=== PATIENT | female | born 1940 | race Caucasian/White ===

== ENCOUNTER 2017-06-16 07:05 | Inpatient (IN) | payer MEDICARE ==
--- NOTE | 2017-06-02 17:11 | NUR ---
PATIENT HERE TODAY FOR PREADMISSION APPOINTMENT ACCOMPANIED BY HER MAN. PATIENT IS SCHEDULED FOR A RIGHT TOTAL KNEE REPLACMENT ON 06/16/17. SHE LIVES IN [place] AND WOULD LIKE PHYSICAL THERAPY TO BE SET UP AT [facility]. SHE REPORTS HAVING A RAMP TO GET INTO THE HOME AND NO STEPS INSIDE THE HOME. SHE HAS A TUB SHOWER COMBO THAT HER HAS WORKED ON AND IT IS A "WALK IN" SINCE HE CUT A HOLE IN THE SIDE OF THE TUB. SHE HAS A SHOWER CHAIR AND IS LOOKING AT GETTING A HAND HELD SHOWER HEAD. SHE HAS A 4 WHEELED WALKER THAT SHE WOULD LIKE TO USE IF SHE IS ABLE TO. THIS INFORMATION WILL BE SENT TO DR NOVA OFFICE AND [place] PLANNING FOR FURTHER FOLLOW UP.
[~2017-06-16] VITALS: Ht 162.6 cm; Wt 140.2 kg
[~2017-06-16 07:05] MED LIST: ASPIR-LOW81 MG PO; BETAMETHASONE D15 G2 TOP; CALCIUM 600 +1 EA13 PO; GABAPENTIN300 MG PO; HYDROCHLOROTHIA25 MG PO; IRON325 M1 PO; LOSARTAN POTASS50 MG PO; LYRICA75 MG PO; MAGNESIUM500 MG PO; MELOXICAM15 MG PO; MELOXICAM7.5 MG PO; METROGEL55 GM TOP; NORCO 5-325 TA1 EACH PO; OMEPRAZOLE20 MG PO; PENTOXIFYLLINE400 MG PO; TYLENOL325 MG PO; VITAMIN C1000 MG PO
--- NOTE | 2017-06-16 12:12 | NUR ---
06/16/17 1212 John Velasquez A BP CUFF BEING READJUSTED. PT AWAKE AND RESPONSIVE. DENIES NAUSEA OR PAIN.
--- NOTE | 2017-06-16 12:55 | NUR ---
PATIENT ARRIVED FROM PACU A+O IN PATIENT BED WITH BRANDON NEGRETE. PATIENT HAD RIGHT TOTAL KNEE WITH AND ARRIVES WITH BLANKA IN RIGHT KNEE FOR CLOSURE, MEPILEX DRESSING, RUPINDER WRAP, BILAT BERNADETTE HOSE, BILAT SCD'S, AND CRYO CUFF IN PLACE. PATIENT IS ON 2L/NC AND DESATS TO THE 80'S OFF O2, BUT REMAINS IN THE HIGH 90'S ON THE 2L/NC. 2OG IV RUNNING LR TO GRAVITY IN THE LEFT HAND. HEEL PROTECTORS APPLIED TO BOTH FEET. LUNGS CLEAR BUT DEMINISHED. PATIENT HAS SENSATION IN HER LEGS FROM THE SPINAL TO THE MID THIGH, BUT CAN MOVE BOTH LOWER EXTREMETIES ON COMMAND. TOES ARE PINK AND COOL BILAT WITH CAP REFILL <3 SECONDS BILAT.
--- NOTE | 2017-06-16 13:13 | NUR ---
PT ALERT, ORIENTED AND SUPPORTED BY HER MAN. COUPLE TRAVELED EARLY THIS MORNING FROM [place], SEEMED TO BE VERY THANKFUL FOR DR NOVA. SPENT SOME TIME HELPING THEM UNDERSTAND THE PROCESS FOR TODAY. PT REQUESTED PRAYER, WILL FOLLOW NEEDED
--- NOTE | 2017-06-16 14:38 | NUR ---
PT MOVED FROM PACU TO M\S RM. BRANDON RIVAS REQUESTED I NOT VISIT NOW-PT VOIDING. HE IS GOING TO GET MORE MEDICATION. REQUESTED I COME BACK LATER. WILL CHECK BACK LATER
--- NOTE | 2017-06-16 17:19 | NUR ---
SPOKE WITH PATIENT AND IN ROOM. PATIENT FEELING SLIGHTLY NAUSEATED POST-OP BUT ABLE TO CONVERSE. PATIENT LIVES IN HOME WITH RAMP, NO STAIRS INSIDE. HAS A MODIFIED TUB FOR LOW STEP IN. HAS A SHOWER CHAIR AND HAND-HELD SHOWER HEAD. PATIENT HAS A FOUR WHEEL WALKER WITH BRAKES/SEAT IN ROOM. SHE IS AWARE SHE MIGHT NOT BE ABLE TO USE THAT FOR IMMEDIATE POST-OP. SHE WANTS TO CHECK WITH PHYSICAL THERAPY AND DR NOVA. PATIENT WANTS TO DO OUTPATIENT THERAPY AT [facility]. SHE WILL HAVE HER FAMILY TO DRIVE HER AND HELP HER AT HOME. NO QUESTIONS AT THIS TIME.
--- NOTE | 2017-06-16 17:38 | NUR ---
PATIENT ARRIVED FROM PACU AT 1255. STANDARD DRESSING AND LOWER EXTREMITY EQUIPMENT IN PLACE. 1310 PATIENT VOMITED AND WAS GIVEN 4MG IV ZOFRAN. NAUSEA SEEMED TO SUBSIDE UNTIL 1355 A WHICH TIME PATIENT VOMITED AGAIN AND WAS GIVEN 12.5MG IV PROMETHAZINE, WHICH RELIEVED THE N/V, BUT PUT THE PATIENT TO SLEEP. WAKING PERIODICALLY UNTIL APPROXIMATELY 1630 WHEN PT GOT PT UP TO THE BED SIDE COMMODE. PATIIENT HAD SOME INCONTINENCE OF URINE ON THE BED AND VOIDED SOME IN THE COMMODE. PATIENT GOT NAUSEATED AGAIN AT THIS TIME, AND VOMITED AGAIN. PROMETHAZINE WAS DRAWN UP AGAIN, BUT NAUSEA SUBSIDED ONCE BACK IN BED. PATIENT TRIED TO DRINK A LITTLE TEA AND EAT A LITTLE JELLO AT 1725 AND NAUSEA RETURNED AND THE PROMETHAZINE 12.5 MG IV IN 25MLS NS DRAWN UP EARLIER GIVEN BEFORE AND RELIEVING NAUSEA, BUT PUTTING PATIENT TO SLEEP AGAIN. SHE IS RESTING QUIETLY AT THIS TIME. UNABLE TO TITRATE O2 OF YET.
--- NOTE | 2017-06-16 18:08 | NUR ---
PATIENT CAN NOW FEEL HER TOES. IV CONTINUES TO RUN D5NS 125MLS/HR.
--- NOTE | 2017-06-16 19:15 | NUR ---
RECEIVED REPORT FROM RN. PATIENT IS RESTING IN BED, BREATHING IS EVEN AND UNLABORED. O2 SATURATION IS 100% ON 2L O2 VIA NC. DENIES PAIN AT THIS TIME. NO NEEDS. ALL ORDERS IN PLACE, AT BEDSIDE.
--- NOTE | 2017-06-16 20:18 | NUR ---
PATIENT RESTING COMFORTABLY IN BED, BREATHING IS EVEN AND UNLABORED. DENIES PAIN, NO NAUSEA AT THIS TIME. NO NEEDS AT THIS TIME. CURRENTLY EATING JELLO, O2 SATURATION IS 100% ON 2L O2 VIA NC, TITRATED TO 1L O2. WILL CONTINUE TO MONITOR. ASSESSMENT DONE. CALL LIGHT WITHIN REACH.
--- NOTE | 2017-06-16 23:26 | NUR ---
PATIENT ASSISTED TO BEDSIDE COMODE WITH FWW. REQUIRED 3PA DUE TO PATIENT'S WEAKNESS AND UNSTEADY GAIT. PATIENT THEN TRANSFERED BACK TO BED WITH 3PA/FWW, NOW RESTING COMFORTABLY. PATIENT DENIES PAIN AT THIS TIME, STATES "I AM JUST SHORT OF BREATH. I AM EXHAUSTED." APPEARS TO BE COMFORTABLY, BREATHING IS EVEN AND NORMAL, RR IS 20. O2 SATURATION IS 95% ON 1L O2 VIA NC. PATIENT DENIES NAUSEA AT THIS TIME. PATIENT WAS ABLE TO VOID. PATIENT DENIES FURTHER NEEDS AT THIS TIME, ALL ORDERS IN PLACE, CALL LIGHT WITHIN REACH.
--- NOTE | 2017-06-16 23:58 | NUR ---
UPDATED DR. CORTES REGARDING PATIENT'S LOW URINE OUTPUT. NO NEW ORDERS AT THIS TIME.
--- NOTE | 2017-06-17 01:25 | NUR ---
PATIENT RESTING COMFORTABLY IN BED, BREATHING IS EVEN AND UNLABORED. O2 SATURUATION IS 98% ON 2L O2 WHILE AWAKE, REQUIRES 2L O2 TO MAINTAIN SATURATION >90% WHILE ASLEEP. DENIES PAIN. ASSESSMENT DONE, SCHEDULED MEDICATIONS GIVEN. ASSISTED TO BEDSIDE COMODE WITH 2PA/FWW. TOLERATED AMBULATION BETTER THAN PREVIOUSLY, GAIT HAS IMPROVED. NOW RESTING IN BED AGAIN, BREATHING IS EVEN AND UNLABORED. DENIES PAIN AFTER AMBULATION, O2 SATURATION CONTINUES TO BE >90%. DENIES FURTHER NEEDS. CALL LIGHT WITHIN REACH, ALL ORDERS IN PLACE.
--- NOTE | 2017-06-17 02:15 | NUR ---
UPDATED DR. CORTES REGARDING PATIENT'S LOW URINE OUTPUT, X1 1L BOLUS OF NS ORDERED.
--- NOTE | 2017-06-17 03:55 | NUR ---
PATIENT RESTING COMFORTABLY IN BED, BREATHING IS EVEN AND UNLABORED. O2 SATURAITON IS 94% ON 2L O2. DENIES PAIN AT THIS TIME. CALL LIGHT WITHIN REACH, ALL ORDERS IN PLACE.
--- NOTE | 2017-06-17 05:16 | NUR ---
PATIENT HAS BEEN RESTING OFF AND ON THROUGHOUT SHIFT. VSS, NO COMPLAINTS OF PAIN. URINE OUTPUT HAS BEEN LOW THIS SHIFT, REQUIRED 1L BOLUS OF NS. URINE OUTPUT CONTINUES TO BE LOW. PATIENT HAS BEEN ALERT AND ORIENTED X4, CAN BE CONFUSED AT TIMES. REQUIRES 2L O2 WHILE SLEEPING, NO NEED FOR O2 WHILE AWAKE, LUNG SOUNDS ARE CLEAR. BOWEL TONES ARE ACTIVE AFTER MOM, PATIENT PASSING FLATUS. DRESSING HAS HAD SMALL AMOUNT OF SANGUINEOUS DRAINAGE FROM DRESSING TO RIGHT KNEE. CMS INTACT. PATIENT HAS REQUIRED 2-3 PERSON ASSIST TO BEDSIDE COMODE DUE TO WEAK/UNSTEADY GAIT. PATIENT'S GAIT HAS IMPROVED SINCE BEGINNING OF SHIFT AND IS IMPROVING WITH TRANSFER TO BEDSIDE COMODE. PATIENT REMAINS ON CONTINUOUS IV FLUIDS, TOLERATING A CLEAR LIQUID DIET WITHOUT ANY NAUSEA/EMESIS THIS SHIFT.
--- NOTE | 2017-06-17 06:30 | NUR ---
ASSISTED PATIENT TO BEDSIDE COMODE WITH 2PA/FWW. TOLERATED WELL. NOW RESTING COMFORTABLY IN BED, BREATHING IS EVEN AND UNLABORED. DENIES FURTHER NEEDS. AT THIS TIME. PAIN IS 0/10. ALL ORDERS IN PLACE, CALL LIGHT WITHIN REACH.
--- NOTE | 2017-06-17 06:57 | NUR ---
UPDATED DR. NOVA REGARDING PATIENT'S LOW URINE OUTPUT. ORDERED TO HOLD MORNING BLOOD PRESSURE MEDICATIONS AND TO DO ORTHOSTATIC VITALS IN AM.
--- NOTE | 2017-06-17 07:17 | NUR ---
UPDATED DR. NOVA REGARDING PATIENT'S LOW URINE OUTPUT AND SOFT BPs. NO NEW ORDERS AT THIS TIME.
--- NOTE | 2017-06-17 07:35 | NUR ---
REPORT RECIEVED FROM BRANDON NAYLOR. PT AWAKE AND SITTING UP IN BED ORDERING BREAKFAST. PT DENIES NAUSEA SINCE DAYSHIFT YESTERDAY. STUDENT RN WILL BE PASSING MEDS, INFORMED TO HOLD BP MEDS AND DO ORTHOSTATIC BPS. CAMERON STATED THEY WOULD LET THIS RN KNOW.
--- NOTE | 2017-06-17 07:56 | OR ---
[facility] [address] [place], [place] [address] Signed DATE OF OPERATION: 06/16/2017 SURGEON: Candi Grove MD PREOPERATIVE DIAGNOSIS: Degenerative joint disease severe right knee. POSTOPERATIVE DIAGNOSIS: Degenerative joint disease severe right knee. PROCEDURE PERFORMED: Right total knee arthroplasty with computer navigation. SOFTWARE REVERSE ENGINEER: Lorena Singleton PA-C. Lorena was present in critical positioning, retraction, and wound closure. ANESTHESIA: Spinal. BLOOD LOSS: Minimal. TOURNIQUET TIME: 67 minutes. IMPLANTS: Rudy size #4 femur, #3 tibia with 13 mm insert and a 32 mm patella. BRIEF HISTORY: Britany is a 76-year-old female with severe erosive osteoarthritis of the knee. Risks and benefits of operative treatment were discussed with her. She elected to proceed. Once medical clearance was obtained, she was taken to the operating room. After adequate anesthesia, she was placed on operating room table. All downside pressure points well padded. The right leg was placed in well-padded proximal thigh tourniquet and prepped and draped in a standard sterile fashion. The leg was exsanguinated using Esmarch bandage. Tourniquet inflated to 300 mmHg. Standard anterior approach through curved incision was taken through the skin and the subcutaneous tissue. The median parapatellar arthrotomy was performed. There was extensive fluid in the knee. There was a loose body right in the front of the knee that measured about 5 x 9 mm. The MCL Electronically Signed By: CANDI GROVE MD 06/17/17 0756 PATIENT NAME: KARRI FRANCIS OPERATIVE REPORT DATE OF : 42 REPORT #: [id number] PHYSICIAN: CANDI GROVE MD PCP: YE ANTON MD REPORT IS CONFIDENTIAL AND NOT TO BE RELEASED WITHOUT AUTHORIZATION [facility] [address] [place], [place] [address] Signed was of a sleeve around the posterior medial corner. The fat pad was excised. The knee was flexed and the navigation guide was pinned to the distal femur and the femur was registered with the computer. The cutting block was then pinned to the distal femur and placed in neutral alignment. The distal femoral cut was made. The bone was excised. Distal femur sized to a #4 and the AP cutting block was pinned in line with the epicondylar axis. The anterior, posterior, and chamfer cuts were made. The osteophytes were removed as we went. The attention was turned to the proximal tibia. The tibial navigation guide was pinned, and the tibia and malleolar are registered with the computer. The cutting block was then pinned in neutral alignment and the cut was made with care taken to protect the patellar tendon and MCL. The bone was removed as were any meniscal remnants. Posterior osteophytes were removed off the femur and the posterior release performed. The flexion and extension gaps were sized and found to be symmetric at 13 mm. The trials were then positioned. The knee taken through range of motion and found to be very stable. She ranged from 0 to about 100 degrees, which represented thigh-heel impingement. The patella was cut, sized, and drilled for a 32 mm patella. The trials were removed. The proximal tibia was finished using the keel punch and the distal femur was drilled. The bone surfaces were pulse lavaged, packed with dry Ray-Celena. Cement was mixed and reached proper consistency, and it was placed in all implants on bone surfaces. Tibia was impacted in position. First, all excess cement was removed. The polyethylene was snapped into position and the femur was impacted and again any remaining cement was removed. The knee was extended and nicely loaded. The patella was clamped and remaining cement was removed. The cement was allowed to harden. Once it hardened sufficiently, the knee was flexed and the remaining excess was removed using osteotomes. The knee was pulse lavaged at intervals throughout the procedure. A total of 3 L of saline was used. We did not use antibiotic irrigation due to her allergy to neomycin. The periarticular soft tissues were injected with 100 mL of ropivacaine and Toradol mixture. The arthrotomy was then closed using #2 Stratafix, #0 Stratafix of the subcutaneous tissue, and rico for the skin. The wound was dressed with Mepilex Ag dressing, ABD and Sree wrap. She tolerated the procedure well. All sponge, needle, and instrument counts were correct. Candi Grove MD BA/MODL /[id number] Electronically Signed By: CANDI GROVE MD 06/17/17 0756 PATIENT NAME: KARRI FRANCIS OPERATIVE REPORT DATE OF : 42 REPORT #: [id number] PHYSICIAN: CANDI GROVE MD PCP: YE ANTON MD REPORT IS CONFIDENTIAL AND NOT TO BE RELEASED WITHOUT AUTHORIZATION [place] [phone] Signed Copies: ~ Electronically Signed By: CANDI GROVE MD 06/17/17 0756 PATIENT NAME: KARRI FRANCIS OPERATIVE REPORT DATE OF : 42 REPORT #: [id number] PHYSICIAN: CANDI GROVE MD PCP: YE ANTON MD REPORT IS CONFIDENTIAL AND NOT TO BE RELEASED WITHOUT AUTHORIZATION
--- NOTE | 2017-06-17 08:01 | NUR ---
ADMINISTERED PANTOPROZOLE FOR REPORTED BURPING. PT DENIES PAIN.
--- NOTE | 2017-06-17 09:15 | NUR ---
PT IN ROOM WITH PATIENT. THIS RN LIAISON SET PATIENT UP TO SIT IN CHAIR WHEN FINISHED WITH PT. ORAL CARE SET UP FOR PATIENT. CALL LIGHT IN REACH. NO OTHER NEEDS AT THIS TIME.
--- NOTE | 2017-06-17 10:40 | NUR ---
ASSISTED PT TO RESTROOM. ONLY HAD 200 DARK YELLOW URINE OUT. EDUCATED ON INCENTIVE SPIROMETER AND GETTING SELF OUT OF CHAIR. SWAPPED OUT FOR LARGER CHAIR.
--- NOTE | 2017-06-17 11:37 | NUR ---
PT SITTING UP IN CHAIR EATING LUNCH. ADMINISTERED AB WO DIFF. SMALL AMT OF DRAINAGE ON DRESSING.
[2017-06-17] MEDS ORDERED: ECONAZOLE NITRA15 GM TOP (11:52)
[2017-06-17] MEDS ORDERED: NORCO 5-325 TA1 EACH PO (11:52)
--- NOTE | 2017-06-17 12:13 | NUR ---
PT SITTING UP IN BED, TEXTING SOMEONE. SHE SMILED AND MENTIONED THAT SHE DID SLEEP WELL. STILL CONFUSING ME WITH DR NOVA, MUCH MORE ALERT AND ORIENTED TODAY. PT IS VERY CHEERFUL, AND SAID SHE WANTS TO GET THIS LEG IN SHAPE SO SHE CAN HAVE THE OTHER KNEE REPLACED IN THE FALL. EXTENDED A BLESSING, WILL FOLLOW NEEDED
--- NOTE | 2017-06-17 13:02 | NUR ---
STUDENT NURSE IN ROOM WITH PATIENT. PATIENT SITTING UP IN BEDSIDE RECLINER. FAMILY IN ROOM. CALL LIGHT IN REACH. NO OTHER NEEDS AT THIS TIME.
--- NOTE | 2017-06-17 14:17 | NUR ---
PT WALKING WITH PHYS. THER. AFTER SALINE LOCKING AND TALKING ABOUT BOOKS WITH PT FOR AWHILE. CONINTUES TO DENY PAIN.
--- NOTE | 2017-06-17 14:31 | NUR ---
WALKING WITH PHYS. THER. HAD PULLED THE ENTIRE DRESSING DOWN AND BASICALLY DESTROYED IT. REPLACED DRESSING, PT TOLERATED WELL. CONTINUING ON WITH PT.
--- NOTE | 2017-06-17 14:31 | NUR ---
PATIENT WORKING WITH PT IN PT ROOM.
--- NOTE | 2017-06-17 15:13 | NUR ---
RN IN ROOM. PATIENT SET UP FOR BEDSIDE BATH. CALL LIGHT IN REACH, NO OTHER NEEDS AT THIS TIME.
--- NOTE | 2017-06-17 16:31 | NUR ---
PATIENT STATED SHE HAD BED BATH WHILE UP IN THE BATHROOM AND GOT THE CLEAN GOWN ON WITH ASSISTANCE FROM AN RN. FRESH ICE WATER AT BEDSIDE TABLE. FAMILLY IN THE ROOM. CALL LIGHT IN REACH. NO OTHER NEEDS AT THIS TIME.
--- NOTE | 2017-06-17 17:09 | NUR ---
ASSISTED PT TO BATHROOM AND BACK TO CHAIR. PT IVF INFUSING WNL. FAMILY IN ROOM. CHANGED GOWN.
--- NOTE | 2017-06-17 17:59 | NUR ---
Patient resting in bedside recliner. fresh ice water on bedside table. call light in reach. no other needs at this time.
--- NOTE | 2017-06-17 18:01 | NUR ---
PT UP TO RESTROOM MULTIPLE TIMES TODAY. TOLERATES WELL. NEEDS SEVERAL PEOPLE TO HELP STAND AND BRACE FOOT. ROLLS BAKER X2. PAIN 2\10. OXY 10MG GIVEN. NS @ 125. UO NOW QS. BP MEDS HELD THIS MORNING. FAMILY IN ROOM MOST OF DAY.
--- NOTE | 2017-06-17 19:25 | NUR ---
RECEIVED REPORT FROM RN. PATIENT RESTING IN BED, BREATHING EVEN AND UNLABORED. DENIES NEEDS AT THIS TIME. CALL LIGHT WITHIN REACH, ALL ORDERS IN PLACE.
--- NOTE | 2017-06-17 21:12 | NUR ---
PATIENT RESTING COMFORTABLY IN BED, BREATHING IS EVEN AND UNLABORED. DENIES NEEDS AT THIS TIME. PAIN IS 0/10. CALL LIGHT WITHIN REACH, ALL ORDERS IN PLACE.
--- NOTE | 2017-06-17 22:43 | NUR ---
ASSISTED PATIENT TO BATHROOM WITH 2PA/FWW. DENIES FURTHER NEEDS. NOW RESTING COMFORTABLY IN BED, BREATHING IS EVEN AND UNLABORED. DENIES INCREASED PAIN. ALL ORDERS IN PLACE. CALL LIGHT WITHIN REACH.
--- NOTE | 2017-06-17 23:28 | NUR ---
PATIENT RESTING COMFORTABLY IN BED, BREATHING IS EVEN AND UNLABORED. FLACC SCORE OF 0. CALL LIGHT WITHIN REACH, ALL ORDERS IN PLACE. CALL LIGHT WITHIN REACH.
--- NOTE | 2017-06-18 01:00 | NUR ---
PATIENT ASSISTED TO BATHROOM WITH 2PA/FWW. TOLERATING AMBULATION WELL, REQUIRES MINIMAL ASSISTANCE. NOW RESTING IN BED, BREATHING IS EVEN AND UNLABORED. STATES "THE PAIN IS UP THERE." PATIENT UNABLE TO GIVE PAIN NUMBER ON 1-10 SCALE, FLACC SCORE OF 4 NOTED. PRN OXYCODONE GIVEN. PATIENT DENIES FURTHER NEEDS. CALL LIGHT WITHIN REACH, ALL ORDERS IN PLACE.
--- NOTE | 2017-06-18 01:06 | NUR ---
PT BACK IN BED, HAD GOTTEN UP TO USE THE COMMODE. ASSIST OF 2 TO GET UP AND BACK INTO BED, POSSIBLE TO USE ONE STAFF BUT PT FEELS COMFORTABLE WITH [address], BERNADETTE HOSDarrell GRACIA, HEEL PROTECTORS SAMIA, SCD'S IN PLACE. PT STATED THAT WHEN GETTING UP THE PAIN IN R KNEE INCREASES ALOT.. NOT TO CRYING BUT CLOSE, ONCE SHE IS UP AND WALKING THE PAIN SUBSIDES, DOES THE PAIN WHEN SHE GETS BACK INTO BED. REQUESTED PAIN MED TO KEEP PAIN UNDER CONTROL. EDUCATED PT OF SIDE EFFECTS OF PAIN MED, IE CONSTIPATION. SHE STATED AWARENESS. O2 IN PLACE, CALL LIGHT WITHIN REACH. NO OTHER NEEDS AT THIS TIME.
--- NOTE | 2017-06-18 04:20 | NUR ---
patient assisted to bathroom with 2pa/fww. tolerating ambulation well, states that pain is at 3 or 4 out of 10 with ambulation. now resting in bed again, breathing is even and unlabored. reports 1/10 pain at rest. patient states "it is more uncomfortable than anything." denies further needs. call light within reach, all orders in place.
--- NOTE | 2017-06-18 05:09 | NUR ---
PATIENT'S NIGHT WAS UNEVENTFUL. SHE HAS BEEN RESTING THROUGHOUT SHIFT. VSS, URINE OUTPUT QS, PAIN WELL CONTROLLED. HAS BEEN UP TO VOID SEVERAL TIMES THIS SHIFT, TAKING PO WELL WITHOUT NAUSEA. DRESSING DRY AND INTACT, SMALL AMOUNT OF SANGUINEOUS DRAINAGE NOTED. CMS INTACT, AMBULATING WELL, REQUIRING SMALL AMOUNTS OF ASSISTANCE, GAIT IS STEADY, PATIENT DOES NOT REPORT LIGHT-HEADEDNESS WITH AMBULATION. BOWEL TONES ARE ACTIVE, RECEIVED MOM THIS SHIFT, NO BOWEL MOVEMENT SINCE AFTER SURGERY. NO ACUTE CHANGES FROM BEGINNING OF SHIFT.
--- NOTE | 2017-06-18 06:15 | NUR ---
ASSISTED PATIENT TO COMODE IN BATHROOM WITH 2PA, GAIT IS STEADY, HAD A MORE DIFFICULT TIME GETTING OFF OF COMODE THIS MORNING, REQUIRING ASSISTANCE WITH GETTING UP. NOW RESTING IN CHAIR, BREATHING IS EVEN AND UNLABORED. REPORTS 4/10 PAIN IN RIGHT KNEE, SCHEDULED TYLENOL GIVEN PER EMAR. PATIENT DENIES FURTHER NEEDS. CALL LIGHT WITHIN REACH.
--- NOTE | 2017-06-18 06:44 | NUR ---
PATIENT CALLED RN AND STATES "I AM WORRIED THAT I AM GOING BACKWARDS INSTEAD OF FORWARD." PROVIDED PATIENT REASSURANCE THAT SHE IS PROGRESSING APPROPRIATELY AND THAT PHYSICAL THERAPY WILL WORK WITH HER IN AM. PATIENT STATES THAT SHE IS HAVING PAIN IN LOWER BACK AND HAS GENERAL MUSCLE ACHES THROUGHOUT BODY. DENIES PAIN IN KNEE AT THIS TIME. REASSURED PATIENT THAT SHE IS DOING WELL. PATIENT STATES THAT SHE UNDERSTANDS AND DENIES FURHTER NEEDS. CALL LIGHT WITHIN REACH.
--- NOTE | 2017-06-18 06:58 | NUR ---
PATIENT REPORTS 5/10 PAIN "ALL OVER," PRN OXYCODONE GIVEN PER EMAR. PATIENT STATES THAT SHE IS FEELING ANXIOUS THIS MORNING. PROVIDED REASSURANCE AGAIN FOR PATIENT. PATIENT IS FIDGITING IN CHAIR, AT BEDSIDE.
--- NOTE | 2017-06-18 07:45 | NUR ---
PATIENT IS SITTING UP IN CHAIR WATCHING TV. PATIENTS IN ROOM. ICE IN CRYO. FRESH ICE WATER. STUDENT NURSE IN ROOM. CALL LIGHT WITHIN REACH. NO OTHER NEEDS AT THIS TIME.
--- NOTE | 2017-06-18 07:48 | NUR ---
REPORT RECIEVED FROM BRANDON NAYLOR. PT SITTING UP IN CHAIR AND IS FAIRLY TEARFUL. STATES SHE ACHES AND IS SORE ALL OVER. CYNDY GAVE HER 10MG OF OXY. IN ROOM. STATES THAT HER KNEE IN PARTICULAR IS NOT HURTING THAT MUCH.
--- NOTE | 2017-06-18 08:47 | NUR ---
PT UP TO BATHROOM FOR BM. 2 PERSON ASSIST WITH FWW. TOLERATED WELL. KNEE PAIN WELL CONTROLLED WITH OXY. STATES SHE HAS ALL OVER ACHES AND SORENESS. IN ROOM, CYRO IN PLACE.
--- NOTE | 2017-06-18 11:06 | NUR ---
PATIENT SITTING UP IN BEDSIDE RECLINER. FAMILY IN THE ROOM. PATIENT STATED SHE HAD ALREADY HAD A BED BATH AND CHANGE OF GOWNS WHILE SHE WAS UP GOING TO THE BATHROOM. FRESH ICE WATER ON BEDSIDE TABLE. CALL LIGHT IN REACH. NO OTHER NEEDS AT THIS TIME.
--- NOTE | 2017-06-18 12:31 | NUR ---
PT SEEMS MORE ALERT AND ORIENTED TODAY. HER CONWAY BY HER SIDE. DR NOVA WANTED ME TO TRY AND MOTIVATE PT, SHE NEEDS TO DO MORE AND PT SEEMS SOMEWHAT DISCOURAGED. HAD I FEEL A POSITIVE VISIT WITH PT-SHE ACKNOWLEDGED THAT SHE NEEDS TO DO MORE. MAN SEEMS AWARE OF HER NEEDS, ESPECIALLY HOW SHE HAS LET HER FEELINGS TO TAKE OVER FROM WHAT REALLY IS HAPPENING. HAD PRAYER WITH PT, WILL FOLLOW NEEDED
--- NOTE | 2017-06-18 12:41 | NUR ---
ASSISTED PATIENT TO TRY TO STAND FOR AMBULATION. PATIENT UNABLE TO STAND WITHOUT TWO PERSON ASSIST AND GAIT BELT. PATIENT AMBULATED HALF LAP AROUND MEDSURGE FLOOR WITH ASSISTANCE FROM RN. PATIENT BACK TO BEDSIDE RECLINER. CRYO CUFF ON. CALL LIGHT IN REACH. NO OTHER NEEDS AT THIS TIME.
--- NOTE | 2017-06-18 14:00 | NUR ---
PATIENT SITTING UP IN BED. RN IN ROOM. CALL LIGHT IN REACH. NO OTHER NEEDS AT THIS TIME.
--- NOTE | 2017-06-18 14:15 | NUR ---
PT CALLED TO SAY SHE WAS NAUSOUS AFTER LYING DOWN IN BED. PT SHAKING AND VISIBLY UPSET. ADMINISTERED TORADOL, ZOFRAN, TYLENOL AND GABAPENTIN ORDERED. ALSO GAVE HER A SNACK. STAYED IN ROOM TALKING TO PT AND REASSURING THAT SHE IS DOING WELL AND IS PROGRESSING NICELY. PT APPEARS TO HAVE CALMED DOWN AFTER UP TO RESTROOM, REPOSITIONED IN CHAIR AND WARM BLANKET PLACED. ON COUCH. ADVISED PT TO TRY AND RELAX AND MAYBE CLOSE EYES FOR A BIT BEFORE PHYS. THER.
--- NOTE | 2017-06-18 15:17 | NUR ---
PT UP WALKING IN [place] WITH JERILYN PT. PT RATES PAIN 2-3\10 AND STATES SHE CAN FEEL IT. APPEARS TO BE WALKING WELL AND HAS A GOOD PACE.
--- NOTE | 2017-06-18 15:44 | NUR ---
PATIENT JUST FINISHED WITH PT. PATIENT SITTING IN BEDSIDE RECLINER WITH FEET UP. THIS LEAD ORACLE DEVELOPER ADJUSTED CRYO CUFF FOR PATIENT. FAMILY IN THE ROOM. CALL LIGHT IN REACH. NO OTHER NEEDS AT THIS TIME.
--- NOTE | 2017-06-18 17:45 | NUR ---
PATIENT LIFTED HERSELF TO STAND ON HER OWN WITH STAND BY ASSISTANCE AND FRONT WHEEL WALKER. . PATIENT UP TO BATHROOM AND BACK TO BEDSIDE RECLINER. CRYO CUFF ON. RN IN ROOM. CALL LIGHT IN REACH. NO OTHER NEEDS AT THIS TIME.
--- NOTE | 2017-06-18 17:57 | NUR ---
THIS RN ASKED TO CHECK ON PTS PAIN. THIS RN TO ROOM, PT REPORTS 2/10 PAIN AND STATES "I'D BE READY FOR A PAIN PILL." SEE MAR FOR MEDCATION GIVEN. PT REPOSITIONED AND WARM BLANKETS PROVIDED FOR BACK. PT STATES "OH THAT'S BETTER." PT WATCHING TV. ARLETH WHITE WITHIN REACH. PT STATES SHE HAS NO ADDITIONAL REQUESTS OR COMPLAINTS AT THIS TIME.
--- NOTE | 2017-06-18 18:04 | NUR ---
PT FEELING BETTER THIS EVENING AFTER A ROUGH DAY. PAIN IS WELL CONTROLLED WITH 10MG OXY. GIVEN TORADOL ONCE TODAY PER DR NOVA AND PT REPORTS FEELING MUCH BETTER. UO QS. LUNGS CLEAR. DR RESTARTED BP MED FOR TONIGHT. DRESSING UNCHANGED.
--- NOTE | 2017-06-18 20:18 | NUR ---
DEMAR NURSE ROUNDING NOTE:, AWAKE, IN CHAIR, LEGS ELEVATED, CRYOCUFF IN PLACE, C/O MILD R LEG DISCOMFORT. WAS MEDICATED AT 1756 WITH FAIR PAIN RELIEF. FAMILY AT BEDSIDE
--- NOTE | 2017-06-18 21:00 | NUR ---
HELPED PT TO THE BR. PICKED UP ROOM.
--- NOTE | 2017-06-18 21:49 | NUR ---
medicated with scheduled tylenol 1000mg po 05/24 r leg pain, toradol 15mg iv 06/24 chronic back pain, in bed, watching tv, cryocuff to r knee, dressing Mepilex and rohit wrap dressing changed,will hose, scds and heel protectors bilat in place. Tolerated going chair to brp and back to bed with 2 assist and fww, well
--- NOTE | 2017-06-18 23:00 | NUR ---
PT AWAKE IN CHAIR. HELPED PT TO THE BR AND THEN TO BED.
--- NOTE | 2017-06-19 03:43 | NUR ---
Up to brp with 2 person assist adn fww. voided and had soft bm, back to bed, tolerated well. Medicated with 2- 5mg po Oxycodone tabs 2/10 r leg pain
--- NOTE | 2017-06-19 04:48 | NUR ---
RESTING, NO C/O PAIN, NO DISTRESS
--- NOTE | 2017-06-19 05:26 | NUR ---
PT HAS SLEPT WELL THIS SHIFT. HAS BEEN MEDICATED WITH OXYCODONE 10MG PO PER C/O R KNEE, GOOD CMS, BLANKA INTACT, INCISION WITH SCANT AMOUNT OFO SEROUS DRAINAGE AT KNEE AREA. MEPILEX DRESSING REMOVED IT HAS OLD DRAINAGE PER PTS REQUESTS, RUPINDER WRAP CHANGD TOO. BERNADETTE IREL[place], SCDS, HEEL PROTECTORS BILAT IN PLACE, CRYOCUFF OVER R K . PT USES 2 PERSON ASSIST AND FWW, HAS BEEN UP IN CHAIR AND BACK TO BED, VOIDED AND HAD A BM. TOLERATED WELL. CURRENTLY SLEEPING, MEDS EFFECTIVE, NO FURTHER C/O PAIN OR REQUESTS
--- NOTE | 2017-06-19 06:47 | NUR ---
UP TO BRP, WITH FWW AND ONE ASSIST, VOIDED, BACK TO BED, TOLERATED WELL, MEDICATED WITH SCHEDULED TYLENOL 1000MG PO
[2017-06-19] MEDS ORDERED: OXYCODONE HCL5 MG PO (07:22)
[2017-06-19] MEDS ORDERED: XARELTO10 MG PO (07:22)
[2017-06-19] MEDS ORDERED: NEURONTIN300 MG PO (07:23)
[2017-06-19] MEDS ORDERED: MIRALAX17 GM PO (07:23)
--- NOTE | 2017-06-19 07:45 | NUR ---
SHIFT REPORT RECEIVED FROM ASIF. PATIENT UP TO CHAIR EATING BREAKFAST. REPORTS MILD PAIN AT THE RIGHT KNEE. MEPILEX DRESSING ON RIGHT KNEE WNL. CALL LIGHT IN REACH. FAMILY AT BEDSIDE.
--- NOTE | 2017-06-19 08:06 | NUR ---
FAXED CHART NOTES TO [facility] OP PT INCLUDING FACESHEET, H AND P, OP NOTES, PROG NOTES, DC PACKET, PT EVAL AND NOTES. RECIEVED FAX CONFIRMATION ON THIS. ALSO CALLED AND SPOKE WITH OSBALDO AT [facility] OP PT, SHE STATED SHE HAS RECIEVED THESE AND THAT THEY WILL NOTIFY THE PT ABOUT WHEN HER APPT IS.
--- NOTE | 2017-06-19 08:25 | NUR ---
PT CALL LIGHT ON. PT REQUESTS ASSISTANCE UP TO RESTROOM. 2 PERSON STAND BY ASSIST WITH FWW UP TO RESTROOM. PT HAS LOOSE, BROWN, BOWEL MOVEMENT. AND IS ASSISTED BACK TO CHAIR. CRYO CUFF REPLACED, ICE REFILLED. PT VISITING WITH PHARMACIST. NO REQUESTS OR COMPLAINTS AT THIS TIME.
--- NOTE | 2017-06-19 09:13 | NUR ---
PATIENT RESTING IN THE CHAIR , IN ROOM. PATIENT DENIES NAUSEA, REPORT MILD PAIN IN THE RIGHT KNEE. RATED 2/10. PATIENT WAS MEDICATED PRIOR TO PHYSICAL THERAPY. DRESSING ON RIGHT KNEE INTACT WITH SCANT AMOUNT OF DRAINAGE. PERIPHERAL PULSE PALPABLE. BERNADETTE LINDSEY. RISHI IS IN ROOM AT THIS TIME.
--- NOTE | 2017-06-19 11:10 | NUR ---
LUNCH ORDER FOR PATIENT. RESTING IN THE CHAIR AT THIS TIME.
--- NOTE | 2017-06-19 14:31 | NUR ---
PT EXCITED BUT NERVOUS ALL AT THE SAME TIME ABOUT GOING HM. DR NOVA IN AGAIN AND REMINDED HER TO STAY DIIGENT WITH REHAB. PT ACKNOWLEDGED HER NEED TO KEEP WORKING; EVEN WHEN SHE DOESN'T FEEL LIKE IT. GAVE SOME WORDS OF ENCOURAGEMENT.EXTENDED A BLESSING, WILL FOLLOW NEEDED
--- NOTE | 2017-06-23 08:14 | DS ---
[facility] [address] [place], [place] [address] Signed ADMISSION DATE: 06/16/2017 DISCHARGE DATE: 06/19/2017 ADMISSION DIAGNOSIS: DJD right knee. DISCHARGE DIAGNOSIS: DJD right knee. PROCEDURE PERFORMED: Right total knee arthroplasty. BRIEF HISTORY: Yolanda is a 76-year-old female with worsening pain in her knee. She had a non-operative treatment for a number of years and had worsening pain despite this. Her function was also decreased. Risks, benefits, and alternatives of operative were discussed with her and she elected to proceed. DESCRIPTION OF PROCEDURE: Once consent was obtained, she was taken to the operating room. After adequate anesthesia, she underwent the above-named procedure. She tolerated this well. She was taken to the recovery room and subsequently to the orthopedic floor. She was initially placed on pain medication of oxycodone 5 to 10 mg p.o. q.3 hours p.r.n. and gabapentin. She was given one dose of dexamethasone on postoperative #day 1. She managed her pain quite well with this program. She was also placed on Toradol for general body aches. She was kept on DVT prophylaxis of SCDs, TEDs, and Xarelto 10 mg p.o. daily. She did well with physical therapy. She was able to ambulate up and down stairs and down the hallway by the day of discharge. She will be discharged to home with outpatient physical therapy . She will follow up with me in 10-14 days or sooner should she have problems. Candi Grove MD BA/LUIS MANUEL /[id number] Electronically Signed By: CANDI GROVE MD 06/23/17 0814 PATIENT NAME: YOLANDA FRANCIS DISCHARGE SUMMARY DATE OF : 42 REPORT #: [id number] PHYSICIAN: CANDI GROVE MD PCP: YE ANTON MD REPORT IS CONFIDENTIAL AND NOT TO BE RELEASED WITHOUT AUTHORIZATION [address] [address] Signed Copies: ~ Electronically Signed By: CANDI GROVE MD 06/23/17 0814 PATIENT NAME: YOLANDA FRANCIS DISCHARGE SUMMARY DATE OF : 42 REPORT #: [id number] PHYSICIAN: CANDI GROVE MD PCP: YE ANTON MD REPORT IS CONFIDENTIAL AND NOT TO BE RELEASED WITHOUT AUTHORIZATION
== END 2017-06-19 12:45 | disposition home or self-care (01) | DRG 470 ==
LOC: DS 07:05 → MS 10:34 → DS 12:39 → MS 06-19 12:45
PROVIDERS: ADMIT Specialist
PROC: 0SRC0J9 Replacement of Right Knee Joint with Synthetic Substitute, Cemented, Open Approach (ICD-10-PCS; principal; 2017-06-16 10:30)
DX: M17.11 Unilateral primary osteoarthritis, right knee (principal); K21.9 Gastro-esophageal reflux disease without esophagitis; G89.29 Other chronic pain; I73.9 Peripheral vascular disease, unspecified; I12.9 Hypertensive chronic kidney disease with stage 1 through stage 4 chronic kidney disease, or unspecified chronic kidney disease; N18.3 Chronic kidney disease, stage 3 (moderate); Z79.82 Long term (current) use of aspirin
CPT/HCPCS: 01402; 36415; 64447; 76942; 80048; 85025; 97110; 97116; 97161; 97165; 97530; C1713; C1776; G8978; G8979; G8987; J0690; J1100; J1885; J2250; J2274; J2370; J2405; J2550; J2704; J2795; J3010; J7030; J7120

== ENCOUNTER 2017-07-01 11:04 | Inpatient (IN) | payer MEDICARE ==
[~2017-07-01] VITALS: Ht 162.6 cm; Wt 146.2 kg
[~2017-07-01 11:04] MED LIST changes: +ECONAZOLE NITRA15 GM TOP; +MIRALAX17 GM PO; +NEURONTIN300 MG PO; +OXYCODONE HCL5 MG PO; +XARELTO10 MG PO
--- NOTE | 2017-07-01 12:18 | NUR ---
2PA TRANSFER TO BS WITH FWW. TOLERATED WELL. PT GETTING PICC LINE PLACED BY PENELOPE TAYLOR SOON.
--- NOTE | 2017-07-01 12:26 | NUR ---
PATIENT RECIEVING PICC LINE AT THIS TIME.
--- NOTE | 2017-07-01 14:32 | NUR ---
PICC ADJUSTMENT. PRIOR TO RADIOLOGY READ, IT WAS NOTED THAT THE LINE TAKES A SHARP ANGLE DEEP IN THE SVC. THE LINE WAS WITHDRAWN 5 CM AND A SECOND CXR WAS TAKEN. WE WILL AWAIT THIS READ PRIOR TO USING THE LINE.
--- NOTE | 2017-07-01 14:55 | NUR ---
SINCE ADMISSION, PT HAS HAD LOTS OF ACTIVITY IN HER RM BY STAFF. STOPPED LONG ENOUGH FOR ME TO EXTEND A BLESSING AND LET HER KNOW I WILL CHECK BACK AGAIN LATER. SHE ACKNOWLEDGED AND WAVED.
[2017-07-01] MEDS ORDERED: LEVAQUIN750 MG PO (15:11)
[2017-07-01] MEDS ORDERED: VANCO 1.251.25 GM/25 IV (15:13)
[2017-07-01] MEDS ORDERED: LASIX20 MG PO (15:13)
--- NOTE | 2017-07-01 15:14 | NUR ---
MED REC COMPLETE
--- NOTE | 2017-07-01 15:30 | NUR ---
TRANSFERRED PATIENT FROM BED TO BSC AND THEN TO RECLINER. LEGS ELEVATED. CALL LIGHT WITHIN REACH. LR AND TUBING READY TO BE ATTACHED TO PATIENT BEFORE OPERATING ROOM STAFF TAKE PATIENT.
--- NOTE | 2017-07-01 17:31 | NUR ---
DIRECT ADMIT FROM HEPPNER. CELLULITIS RLE. 2 WK POST OP RIGHT KNEE SURGERY. NPO FOR PROCEDURE. IVF @ 125. 2PA WITH FWW. BRUISING ON RADHA, LEFT ANKLE, AND LOWER BACK. SCD AND BERNADETTE HOSE ON LEFT LEG. FERNANDO PERIPHERAL IV THAT PATIENT ARRIVED WITH. PICC PLACED IN FERNANDO THIS AFTERNOON. LEFT FLOOR AT 1615 FOR I&D OF RIGHT KNEE. SOME DRAINAGE COMING FROM RLE.
--- NOTE | 2017-07-01 18:57 | NUR ---
07/01/17 185 Erica Espinoza 183 PT ARRIVED TALKING WITH CORRECTION OFFICER AT BEDSIDE. PT REPORTS FEELING "WRIED" BUT DENIES PAIN AND NAUSEA. 184 VSS. 185 WARM BLACKETS APPLIED. PT ENCOURAGED TO COUGH AND DEEP BREATH.
--- NOTE | 2017-07-01 19:10 | NUR ---
IN ROOM FOR REPORT, PT HAS NOT RETURNED FROM PACU YET. HER MAN IS WAITING IN THE ROOM.
--- NOTE | 2017-07-01 20:10 | NUR ---
PT ARRIVED TO ROOM FROM PACU. IS ALERT, ORIENTATED. RIGHT LEG WITH WRAPPING FROM ABOVE THE KNEE TO ANKLE. RIGHT ANKLE WITH PITTING EDEMA, FOOT IS WARM AND PINK. PT COMPLAIN OF BURNING ALONG THE OUTER RIGHT [place]AR[place] AREA BELOW THE KNEE. NO NAUSEA POST SURGERY. SCD, BERNADETTE IN PLACE LEFT LEG. WILL CHECK ORDERS AND FOLLOW PER MD.
--- NOTE | 2017-07-01 20:20 | NUR ---
CONTACTED DR NOVA TO GET A DIET ORDER, RECEIVED ORDERS OF GABAPENTIN, DECADRON 2 DOSES, ONE TONIGHT AND ONE TOMORROW.
--- NOTE | 2017-07-01 21:36 | NUR ---
PT EATING SANDWICH, DR CORTES IN PRIOR TO. MED PT FOR PAIN 05/24 STATES THAT THE PAIN COMES ON SUDDENLY THEN GOES AWAY BUT DOESN'T WANT IT TO GET WORSE.
--- NOTE | 2017-07-01 22:21 | NUR ---
PT VISITING AND SUDDENLY VOMITED. DENIES NAUSEA, NOTED SHE STARTED BURPING PRIOR AND SAID I HOPE I DON'T THROW UP WHEN I BURP I MIGHT VOMIT. 500 CC OF UNDIGESTED SANDWICH, THE DECRADON SHE HAD JUST RECEIVED PO. IV ANTIBIOTIC CURRENLTY INFUSING. STATES WHEN SHE TAKES PILLS SHE STARTS BURPING ALOT, BUT AT HOME SHE DOESN'T VOMIT. DENIES NAUSEA. STATES SHE HAS INCREASED IN REFLUX IN THE PAST 2 WEEKS. RIGHT FOOT REMAINS PINK, WARM WITH EDEMA. ABLE TO WIGGLE TOES ON RIGHT FOOT.
--- NOTE | 2017-07-01 22:34 | NUR ---
PULSE OX IN PLACE, PT FELL ASLEEP, O2 DROPPED TO 86-87. 1.5 L O2 APPLIED PER NC. NO FURTHER VOMITING.
--- NOTE | 2017-07-01 23:06 | NUR ---
WITH 3 STAFF WE ATTEMPTED TO GET PT UP TO COMMODE BUT SHE WAS NOT ABLE TO STAND. PT IS BACK IN BED WITH CHUX PADS BENEATH HER.
--- NOTE | 2017-07-01 23:27 | NUR ---
GAVE PT ZOFRAN AFTER 500MLS OF EMESIS EARLIER. PT DENIES FURTHER NEEDS AT THIS TIME. CALL LIGHT IS WITHIN REACH AND IS IN HER ROOMM.
--- NOTE | 2017-07-02 03:08 | NUR ---
CALLED DR CORTES TO LET HIM KNOW THE PT HAS NOT VOIDED THROUGH THE NIGHT BUT HAD 500 OF EMESIS AND THAT BP IS NORMAL. ALSO NOTIFIED HIM OF BLADDER SCAN OF 97 MLS. HE SAID TO CONTINUE TO MONITOR AND CONTINUE THE IV FLUIDS ORDERED. WILL CONTINUE TO MONITOR.
--- NOTE | 2017-07-02 04:05 | NUR ---
PT IS RESTING WITH EYES CLOSED, RESPIRATIONS ARE EVEN AND NONLABORED. CALL LIGHT IS WITHIN REACH.
--- NOTE | 2017-07-02 05:19 | NUR ---
PT ATTEMPTED TO VOID ON BEDPAN. WE WERE ONLY ABLE TO OBTAIN 10 MLS OF DARK YELLOW URINE. PT STATES HER PAIN IS A 5/10 WHEN MOVING, ADMINISTERED 5MG OXYCODONE AND TYLENOL. CALL LIGHT IS WITHIN REACH.
--- NOTE | 2017-07-02 07:53 | NUR ---
PT HAD BOUT OF EMESIS ABOUT TO GET OUT OF BED. ADMINISTERED ZOFRAN. PT WIPED DOWN AND REPLACED GOWN.
--- NOTE | 2017-07-02 08:16 | OR ---
[facility] [address] [place], [place] [address] Signed DATE OF OPERATION: 07/01/2017 SURGEON: Candi Grove MD PREOPERATIVE DIAGNOSIS: Cellulitis right knee incision. POSTOPERATIVE DIAGNOSIS: Infected total knee, right. PROCEDURE PERFORMED: 1. Irrigation and debridement of skin, subcutaneous tissue, and bone right knee. 2. Exchange of polyethylene right knee. SURGEON: Candi Grove MD FREELANCE COPYWRITER: ALEXSANDRA Angel. Lorena was present for the entire procedure, was critical for positioning, retraction, and wound closure. Second is Sil Stewart, MS4. ANESTHESIA: Spinal. BLOOD LOSS: 100 mL. TOURNIQUET TIME: Two cultures were taken, two anaerobic and two aerobic cultures were taken from the knee. BRIEF HISTORY: Yolanda is a 76-year-old female was admitted to an [facility] with cellulitis of the knee and pneumonia. She was also hyponatremic, and fluid overloaded. Medically, she was placed on IV antibiotics and did well. However, knee continued to drain a little bit inferiorly, and had some redness. They contacted me and I had her come down today to clinic where we elected to proceed with irrigation and debridement of the knee. Risks, benefits, and alternatives were discussed with her at length and she understood and wished to proceed. Electronically Signed By: CANDI GROVE MD 07/02/17 0816 PATIENT NAME: YOLANDA FRANCIS CLARITA OPERATIVE REPORT DATE OF : 42 REPORT #: [id number] PHYSICIAN: CANDI GROVE MD PCP: YE ANTON MD REPORT IS CONFIDENTIAL AND NOT TO BE RELEASED WITHOUT AUTHORIZATION [facility] [address] [place], [place] [address] Signed DESCRIPTION OF PROCEDURE: Once consent was obtained, she was taken to the operating room. After adequate anesthesia, the leg was placed in well-padded proximal thigh, tourniquet prepped and draped in standard sterile fashion. The prior incision was then opened longitudinally. Immediately the arthrotomy was noted to be open over the inferior half. The rest of the arthrotomy was opened up and the sutures removed. Soft tissue was debrided to remove all devitalized tissue. Again the tourniquet was not inflated so we could not check for bleeding. The synovectomy was then performed on the knee, and the polyethylene was removed so we could get to the back of the knee and perform synovectomy and debridement back there. The knee was then pulse lavaged with 4.5 L of antibiotic irrigation. The metal and plastic surfaces were then scrubbed down using lap sponge soaked in hydrogen peroxide. We were able to get it all cleaned. The knee was washed out with a further 1-1/2 L of antibiotic irrigation, and the new polyethylene was placed in the knee. The arthrotomy was then closed using #1 PDS using interrupted sutures. The subcutaneous tissue was closed using 0-PDS after washing it out with another L of antibiotic irrigation under pulse lavage. The skin was then closed using 2-0 nylon using interrupted suture. The knee was then dressed with a Mepilex dressing, ABD and a bulky Richard. She was taken to the recovery room in satisfactory condition. All sponge, needle, and instrument counts were correct. Candi Grove MD BA/MODL /[id number] Copies: ~ Electronically Signed By: CANDI GROVE MD 07/02/17 0816 PATIENT NAME: YOLANDA FRANCIS CLARITA OPERATIVE REPORT DATE OF : 42 REPORT #: [id number] PHYSICIAN: CANDI GROVE MD PCP: YE ANTON MD REPORT IS CONFIDENTIAL AND NOT TO BE RELEASED WITHOUT AUTHORIZATION
--- NOTE | 2017-07-02 08:32 | NUR ---
PATIENT UP WITH ONE RN, 2 STUDENT NURSES, AND THIS FISHER NET. PATIENT HAD 200ML OF EMISES WHEN SHE SAT STRAIGHT UP IN BED. PATIENT USED GATE BELT AND FWW FROM BED TO BSC TO CHAIR. BED BATH DONE. LINENS CHANGED. ORAL CARE DONE. PATIENT UP IN CHAIR WITH LEGS ELEVATED EATING BREAKFAST. IN ROOM. CALL BUTTON IN REACH. NO OTHER NEEDS AT THIS TIME. FRESH ICE WATER GIVEN.
--- NOTE | 2017-07-02 09:28 | NUR ---
SUPERVISED STUDENT BRANDON MOSS GIVING MEDS. DETAILED MEDICATIONS AND REASONS FOR TAKING AND SIDE EFFECTS. PT VERBALIZED UNDERSTANDING AND ASKED APPROPRIATE QUESTIONS. DR NOVA IN TO SEE PT.
--- NOTE | 2017-07-02 11:00 | NUR ---
ADMINISTERED DECADRON AFTER PHARM BROUGHT IT UP. PASTOR DENT IN PRAYING WITH PT. SHE APPEARS EMOTIONAL. IN ROOM.
--- NOTE | 2017-07-02 12:40 | NUR ---
PT HAS VISITORS IN ROOM AND KEEPS BENDING ARM. MUNAO TRYING TO RUN. REMINDED PT SHE NEEDS THE AB TO INFUSE AND TRY TO KEEP ARM STILL THE PICC LINE KEEPS BEEPING.
--- NOTE | 2017-07-02 14:15 | NUR ---
ASSISTED PT UP FROM COMMODE TO BED. HAD A HARD TIME GETTING UP AND STAYING UP. AFTER A FEW TRIES AND REPOSITIONING OF FEET SHE WAS ABLE TO WALK A FEW FEET. ADMINISTERED PAIN MEDICATIONS. PT SITTING ON SIDE OF BED WAITING FOR JERILYN PHYS. THER.
--- NOTE | 2017-07-02 17:27 | NUR ---
THIS FORMULATION SCIENTIST AND ROSALIND BARBOUR ASSISTED PATIENT ONTO THE BEDSIDE COMMODE. 2 PERSON WITH FWW. PATIENT NOW SITTING UP IN BED EATING DINNER. CALL LIGHT WITHIN REACH. NO OTHER NEEDS AT THIS TIME.
--- NOTE | 2017-07-02 17:51 | NUR ---
PATIENT SITTING UP IN BED. FAMILY IN ROOM VISITING. CALL LIGHT IN REACH. NO OTHER NEEDS AT THIS TIME.
--- NOTE | 2017-07-02 18:03 | NUR ---
PT EMOTIONAL TODAY, BUT DID VOLUNTEER SPECIALIST. ONLY ABLE TO WALK IN ROOM. BEDSIDE COMMODE. NO BM, URINE OUTPUT REMAINS LOW. DRESSING IN PLACE, UNABLE TO VISUAL INCISION. HR IRREGULAR AT TIMES. EATING AND DRINKING WELL. 2 PERSON ASSIST.
--- NOTE | 2017-07-02 18:45 | NUR ---
PT UP TO BEDSIDE COMMODE. GETTING STRONGER. STILL A TWO PERSON ASSIST. FAMILY IN ROOM.
--- NOTE | 2017-07-02 20:02 | NUR ---
RECEIVED REPORT FROM DAY SHIFT RN. PATIENT ASSISTED FROM THE [facility] BACK TO THE HOSPITAL BED. PATIENT IS A 2PA W/GAIT BELT AND FWW. PATIENT IS NOW BACK IN BED RESTING. PATIENT HAS CAST PADDING ON RIGHT LEG AND IT IS C/D/I. PATIENT HAS TEDHOSE AND SCDS ON LEFT LEG. PATIENT RATES PAIN AT A 1/10 IN BED AND 3/10 WITH MOVEMENT. PATIENT IS REQUESTING PAIN MEDICATION WITH NIGHT MEDICATIONS. NO FURTHER NEEDS NOTED. CALL LIGHT IN REACH. [id number].
--- NOTE | 2017-07-02 20:39 | NUR ---
PATIENT ASSESMENT COMPLETED. PATIENTS EVENING MEDICATIONS GIVEN PER ORDER. PATIENT CONTINUEST TO RATE PAIN AT A 1/10 WHILE AT REST AND 3/10 W/MOVMEMENT. PATIENT GIVEN PRN PAIN MEDICATION PER REQUEST. PATIENT ASSISTED TO [facility] A 2PA W/FWW AND GAIT BELT. PATIENT WAS ABLE TO VOID. PATIENT IS NOW BACK IN BED RESTING. PATIENT HAS TEDHOSE ON RLE AND SCDS. PATIENT CONTINUES TO REFUSE HEEL PROTECTORS. PATIENT EDUCATED ON THE IMPORTANCE OF HEEL PROTECTORS. PATIENT CONTINUES TO REFUES. WILL CONTINUE TO ENCOURAGE HEEL PROTECTORS. PATIENT HAS A PICC LINE UN HER RIGHT UPPER ARM THAT IS INFUSING ABX AT THIS TIME. PATIENT COMPLETED IS AND ACAPELLA. PATIENT IS ON RA. PATIENT HAS CAST PADDING ON RIGHT LEG IT IS C/D/I. PATEINT PROVIDED CRACKERS WITH PO MEDICATIONS. PATIENT DENIES ANY NAUSEA. PATIENT DENIES ANY FURTHER NEEDS. CALL LIGHT IN REACH. AT THE BEDSIDE. AAOX3
--- NOTE | 2017-07-02 22:40 | NUR ---
PATIENT IV ABX COMPLETED. PATIENTS PICC IS NOW HEPLOCKED. PATIENT DID NOT AWAKEN WHILE IN THE ROOM. SCDS, AND TEDHOSE REMAIN IN USE ON RLE. RR 18. CALL LIGHT IN REACH.
--- NOTE | 2017-07-02 23:50 | NUR ---
PATIENT IS RESTING IN BED WITH EYES CLOSED. BREATHING IS EVEN AND UNLABORED, SNORING IS HEARD. RR 16. TEDHOSE, AND SCD ON RLE. CALL LIGHT IN REACH.
--- NOTE | 2017-07-03 02:10 | NUR ---
PATIENT ASSISTED TO THE BSC A 2PA W/GAIT BELT AND FWW. PATIENT WAS ABLE TO VOID. PATIENT IS BACK IN BED RESTING WITH SCDS AND TEDHOSE TO LEFT LOWER EXT. PATIENT RATES PAIN AT A 4/10. PATIENT GIVEN PRN PAIN MEDICATION PER ORDER. PATIENT DENIES ANY FURTHER NEEDS AT THIS TIME. CALL LIGHT IN REACH. AAOX3.
--- NOTE | 2017-07-03 04:26 | NUR ---
PATIENT IS RESTING IN BED WITH EYES CLOSED. BREATHING IS EVEN AND UNLABORED, RR 16. CALL LIGHT IN REACH.
--- NOTE | 2017-07-03 05:13 | NUR ---
PATIENT RESTED WELL THROUGHOUT THE SHIFT. PATIENT IS A 2PA W/GAIT BELT AND FWW. PATIENT IS ON A REGULAR DIET, TOLERATING WELL, NO NAUSEA NOTED. PATIENT RECEIVED PRN PAIN MEDICATION X2. PATIENT HAS A PICC IN RIGHT UPPER ARM THAT IS HEPLOCKED WHEN NOT IN USE AND FLUSHES WELL. PATIENT USES BSC. PATIENT HAS TEDHOSE, AND SCD ON LEFT LOWER LEG. PATIENT REFUSES HEEL PROTECTORS DESPITE EDUCATION. PATIENT HAS CAST PADDING ON HER RIGHT LEG THAT IS C/D/I, NO DRAINAGE NOTED. PATIENT GIVEN CRACKERS BEFORE PO MEDICATION ADMINISTERED. PATIENT IS NO RA. PATIENT IS AAOX3 AND USES CALL LIGHT PER ORDER.
--- NOTE | 2017-07-03 06:45 | NUR ---
PATIENT ASSITED TO THE BSC. PATIENT TOLERATES ACTIVITY WELL. PATIENT IS A 2PA W/FWW WITH A GAIT BELT. PATIENT RATES PAIN AT A 3/10. PATIENT GIVEN SCHEDULED TYLENOL PER ORDER. PATIENT DENIES THE NEED FOR FURTHER PAIN MEDICATION. PATIENT IS NOW IN RECLINER RESTING. PATIENT HAS TEDHOSE AND SCDS APPLIED TO LEFT LEG. PATIENTS DRESSING C/D/I. NO FURTHER NEEDS NOTED. CALL LIGHT IN REACH.
--- NOTE | 2017-07-03 08:30 | NUR ---
PATIENT IN RECLINER, LEG ELEVATED. DSG TO RIGHT KNEE C/D/I. PAIN WELL MANAGED, PROVIDED PATIENT WITH OXYCODONE THIS MORNING SECONDARY TO PHYSICAL THERAPY GOIND TO WORK WITH HER. PATIENT COMPLAINS OF CONSTIPATION, PROVIDED SUPPOSITORY.
--- NOTE | 2017-07-03 09:35 | NUR ---
PATIENT BACK TO BED AFTER LARGE BM. PATIENT STATES " I AM FEELING MUCH BETTER". CALL LIGHT WITHIN REACH.
--- NOTE | 2017-07-03 11:05 | NUR ---
PATIENT UP WITH PHYSICAL THERAPY, AMBULATED 60 FEET WITH WALKER. COMPLAINTS OF BURNING PAIN IN CALF, PROVIDED PATIENT WITH ICE, PAIN IMPROVED. DSG C/D/I, PATIENT BACK TO BED. BED BATH PROVIDED.
--- NOTE | 2017-07-03 12:13 | NUR ---
I WAS ABLE TO CATCH PT WITH NO OTHER ACTIVITY IN . HER MAN WELCOMED ME AND PT DID WELL. THIS HAS BEEN VERY DIFFICULT FOR PT COMING BACK, WITH SUBSEQUENT SURGERY. WE DEBRIEFED, LETTING HER VENT SOME. I OFFERED PT A PRAYER SHAWL-NOT SURE SHE WANTED IT. EXPLAINED IT'S PURPOSE, AND THEN SHE DECIDED SHE WOULD GIVE IT A TRY. ALSO LEFT A GUIDEPOST MAG. PT REQUESTED PRAYER, WILL FOLLOW NEEDED
--- NOTE | 2017-07-03 13:00 | NUR ---
PATIENT UP AMBULATING IN ROOM, URINATING WELL. PAIN WELL CONTROLLED. RATES PAIN 2/10 ON PAIN SCALE REST, AND 4/10 ON PAIN SCALE WITH ACTIVITY. ADMINISTERED 2 TABS OF oxy FOR COMPLAINTS OF PAIN IN GROIN.
--- NOTE | 2017-07-03 14:42 | NUR ---
PATIENT REPORTS PAIN IN GROIN AND THE BURNING IN CALF HAVE RESOLVED. PATIENT NOW READY TO WORK WITH PHYSICAL THERAPY. PATIENT TALKING ON PHONE WITH FAMILY, DENIES ANY NEEDS AT THIS TIME.
--- NOTE | 2017-07-03 16:35 | NUR ---
HELPED PHYSICAL THERAPY GET HER UP FROM THE BEDSIDE COMMODE. ALSO WHILE PHYSICAL THERAPY WAS WALKING HER I WAS FOLLOWING WITH THE WHEELCHAIR SO IF SHE GOT TIRED SHE COULD SIT DOWN. PATIENT IS IN BED NOW ALSO REFILLED HER CUP WITH ICE WATER. SHE DID 125 FEET AROUND MED SURG.
--- NOTE | 2017-07-03 17:24 | NUR ---
FAXED CHART NOTES TO [facility] TODAY PT WANTS TO GO THERE FOR SWING BED. FAXED INCLUDED FACESHEET, H AND P, PROG NOTES, OP NOTE, IMAGING, LAB, PT EVAL AND NOTES TO THEM RECIEVED FAX CONFIRMATION. TALKED WITH DONAVON CAAL ABOUT THIS [phone], FAX TO [phone].
--- NOTE | 2017-07-03 18:11 | NUR ---
PT IS RESTING IN BED SAFELY WITH CALL LIGHT IN REACH. PT DID NOT NEED ANYTHING AT THE MOMENT
--- NOTE | 2017-07-03 19:30 | NUR ---
RECEIVED BEDSIDE REPORT FROM DAY SHIFT RN. PT IS RESTING IN BED. CMS IN RIGHT LEG INTACT. PT REPORTS PAIN 2/10. PT REQUESTING PAIN MEDICATION WITH NIGHT TIME MEDICATIONS. PT ALSO REQUESTED TO USE BSC. TOLLERATED WELL WITH 2PA. [facility]. NO OTHER NEEDS AT THIS TIME.
--- NOTE | 2017-07-03 20:46 | NUR ---
ROUNDED CHARGE. PATIENT IS RESTING IN BED WATCHING TV. NO PAIN OR NAUSEA NOTED. NO NEEDS NOTED. CALL LIGHT IN REACH.
--- NOTE | 2017-07-03 20:51 | EKG ---
[facility] [address] [facility] [place] [address] Signed Normal sinus rhythm Low voltage QRS Borderline ECG No previous ECGs available Confirmed by MARISABEL CORTES MD ([id number]) on 07/03/2017 8:51:42 PM Electronically Signed By: MARISABEL CORTES MD 07/03/172050 PATIENT NAME: KARRI FRANCIS CLARITA Electrocardiogram DATE OF : 42 PHYSICIAN: MARISABEL CROTES MD REPORT #: [id number] REPORT IS CONFIDENTIAL AND NOT TO BE RELEASED WITHOUT AUTHORIZATION
--- NOTE | 2017-07-03 23:06 | NUR ---
PT UP TO BSC VIA 2PA. PT TOLLERATED WELL. ASSESSMENT COMPLETED. DRESSING IS C/D/I. PT REPORTS PAIN AT 04/26. OXYCODONE 10MG GIVEN WITH SCHEDULED TYLENOL. CMS INTACT IN RLE. PULSES +2 ALL FOUR EXTREMITIES. LUNGS SOUND CLEAR. HEART TONE WNL. CALL LGIHT WITHIN REACH. REPORTS NO OTHER NEEDS AT THIS TIME.
--- NOTE | 2017-07-03 23:34 | NUR ---
PT APPEARS TO BE SLEEPING. RESPIRATIONS EQUAL AND UNLABORED. CALL LIGHT WITHIN REACH.
--- NOTE | 2017-07-04 02:10 | NUR ---
PT APPEARS TO BE SLEEPING. RESPIRATIONS EQUAL AND UNLABORED. CALL LIGHT WITHIN REACH.
--- NOTE | 2017-07-04 04:32 | NUR ---
PT UP TO COMMODE VIA 2PA WITH FWW. PT REPORTS PAIN OF 5/10 WHEN MOVING. REQUESTED PAIN MEDICATION. ASSESSMENT COMPLETED. NO CHANGES. CMS INTACT IN RLE. CALL LIGHT WITHIN REACH.
--- NOTE | 2017-07-04 04:40 | NUR ---
PT A/O IN BED. AT BEDSIDE. PT REPORTS PAIN 04/26. REPORTS NO NEEDS AT THIS TIME. CALL LIGHT WITHIN REACH. SCD AND TEDHOSE ON LEFT LEG. HEEL PROTECTORS IN PLACE. DRESSING C/D/I. CMS INTACT.
--- NOTE | 2017-07-04 05:09 | NUR ---
PT SLEPT WELL THROUGHOUT THE NIGHT. PULSE +2 RLE. DRESSING IS C/D/I. PT REPORTS NO TINGLING OR NUMBNESS. TOTAL WEIGHT BEARING ON RIGHT LEG. 2PA WITH FWW. VANCO TROUGH THIS AM. ON REGULAR DIET. NO N/V. TEDHOSE AND SCD ON LEFT LEG. PAIN 5/10 OXYCODONE 10MG AND TYLENOL SCHEDULED GIVEN AT 0500. PICC IN FERNANDO. PT IS AAO.
--- NOTE | 2017-07-04 09:07 | NUR ---
Patient expressed to SN that she was experiencing some discomfort while lying in bed and requested PRN pain medication prior to completing her morning PT. Patient describes pain as an ache all over body, specifically in her R knee. SN administered 10 mg of Oxycodone for pain and readjusted patient. PT to see patient soon.
--- NOTE | 2017-07-04 09:12 | NUR ---
Late entry for 0745. Patient used call light to request assistance to the restroom. SN assisted patient to the commode. SN then assisted patient back to her bed. Patient's surgeon then entered room to discuss R knee and change dressings. SN then offered patient her breakfast amd adjusted bed. Call light was given to patient and she had no concerns at that time other than minor discomfort, which SN explained that pain medication was available at 0900. SN offered an ice pack, patient denied.
--- NOTE | 2017-07-04 10:58 | NUR ---
SN administered patient's ceftriaxone via her PICC. SN also rebandaged the wrap on patient's R knee and lower leg. Patient states that her pain is improving but occasionally increases with movement. Patient is currently resting in bed with knee and leg elevated with no other complaints.
--- NOTE | 2017-07-04 11:49 | NUR ---
PT STATED THAT SHE WOULD TRY CALLING THE LOOP AND SEE IF THEY COULD CARD SCRAPER HER A RIDE. SHE DID CALL AND THEY AGREED TO PICK HER UP TOMORROW. CALLED THE LOOP IN [place] AND THEY ARE PICKING HER UP AFTER SHE IS DISCHARGED TOMORROW.
--- NOTE | 2017-07-04 11:54 | NUR ---
SN assisted patient to the restroom to use commode and bathe. Dressing on R knee was removed during bathing and reapplied immediately afterward. Patient was able to walk to the bathroom and back to her bed without any complaints of pain. Wound had minor drainage. Patient had minor SOB during bathing. Patient is now sitting upright in bed eating lunch.
--- NOTE | 2017-07-04 12:41 | NUR ---
Primary nurse suggested applying Mediplex and transparent dressing as this is commonly ordered by Dr. Grove. No orders addressing this; however, mediplex foam and transparent dressing were applied by nursing students and instructor . RUPINDER bandage applied over dressing; pillow positioned under leg maintaining no more than a 20 degree flexion.
--- NOTE | 2017-07-04 13:26 | NUR ---
VISITED WITH PT'S MAN IN [place]. HE SHARED WITH ME THAT THIS WHOLE EXPERIENCE HAS BEEN DIFFICULT ON HIM WELL. HE HAS HAD DIFFICULTY SEEING PT STRUGGLE WITH PAIN, AND THEM HAVING TO COME BACK. DEALING WITH THE INFECTION HAS PLACED PT ON HIGH LEVEL OF ANXIETY. CONWAY MENTIONED THAT PT DOESN'T DEAL WELL WITH PAIN, AND MAKES MATTERS WORSE. DISCUSSED PT BEING DC'D TO PIONEER AT SWING BED STATUS. HE STATED THAT WOULD BE MUCH EASIER ON THEM, GETTING CLOSE TO HOME. EXTENDED A BLESSING, WILL FOLLOW NEEDED
--- NOTE | 2017-07-04 14:56 | NUR ---
PATIENT SITTING UP IN BEDSUING "IS" IN ROOM. VITALS AND I/OS DONE. PT JERILYN IN ROOM FOR THERAPY. FRESH ICE WATER GIVEN CALL LIGHT IN REACH
--- NOTE | 2017-07-04 16:26 | NUR ---
ROUNDED WITH DR. CORTES. ADMINISTERED SECOND PILL OF OXYCODONE. PATIENT CONCERNED ABOUT TWITCHING IN ARMS, ADDRESSING CONCERNS WITH DR. CORTES. PROVIDED PATIENT WITH ICE WATER.
--- NOTE | 2017-07-04 18:24 | NUR ---
PATIENT IN BED, EYES CLOSED. VITALS AND I/OS DONE. PATIENT IS HAVING DIFFICULTY KEEPING EYES OPEN THIS EVENING, APPEARS TO BE FALLING ASLEEP MID SENTENCE CALL LIGHT IN REACH. FAMILY IN ROOM
--- NOTE | 2017-07-04 18:45 | NUR ---
PATIENT VOIDING WELL THROUGHOUT DAY, UA SENT TO LAB. CHEST XRAY DONE, NEGATIVE. SURGICAL BANDAGE ROMOVED BY , SHOWERED. SURGICAL SITE INTACT WITH NO SIGNS OF INFECTION. MEPILEX PLACED WITH ABD AND RUPINDER WRAP TO REINFORCE. PATIENT AMBULATED LONGER DISTANCE IN HALLS WITH PHYSICAL THERAPY, TOLERATED WELL. LUNG SOUNDS CLEAR. PAIN WELL CONTROLLED WITH OXYCODONE AND SCHEDULED TYLENOL AND GABAPENTIN. PLAN TO DISCHARGE TO [facility] TOMORROW FOR PHYSICAL THERAPY NEEDS.
--- NOTE | 2017-07-04 19:00 | NUR ---
ROUNDED CHARGE. PATIENT IS BEING ASSISTED BACK TO BED BY SEATING AND MOBILITY TECHNOLOGIST. NO NEEDS NOTED. CALL LIGHT IN REACH. AT THE BEDSIDE.
--- NOTE | 2017-07-04 19:10 | NUR ---
SHIFT REPORT RECEIVED. PATIENT RESTING IN BED. IS ROOM. NO NEEDS AT THIS TIME. CALL LIGHT IN REACH.
--- NOTE | 2017-07-04 19:30 | NUR ---
CNAS ASSISTED PATIENT TO BSC AND BACK INTO BED.
--- NOTE | 2017-07-04 19:45 | NUR ---
ASSISTED PATIENT BACK TO BED FROM [facility]. PATIENT ABLE TO TOLERATE TRANSFER WITH FWW AND SOME ASSIST WITH HER RIGHT LEG. ENCOURAGED PATIENT TO DO MUCH FOR HERSELF POSSIBLE. PATIENT REPORTS GOOD PAIN CONTROL AT THIS TIME. RUPINDER WRAP ON RIGHT KNEE INTACT. NO DRAINAGE NOTED. PATIENT RESTING COMFORTABLY. SCD ON LEFT LEG WITH BENRADETTE HOSE. RIGHT LEG ELEVATED ON PILLOW, ONLY DEL ROSARIO & FOOT. CALL LIGHT IN REACH.
--- NOTE | 2017-07-04 20:44 | NUR ---
VITALS AND I&OS DONE AND CHARTED. BEDSIDE TABLE AND CALL LIGHT WITHIN REACH. TEETH SOAKING IN THE BATHROOM. AND LEG REPOSITIONED PER REQUEST OF PT. FRESH ICE WATER GIVEN. PT NEEDS NOTHING ELSE AT THIS TIME.
--- NOTE | 2017-07-04 22:57 | NUR ---
HELPED PT TO THE BEDSIDE COMMODE WITH THE HELP OF ROSALIND NICHOLE. HELPED PT BACK TO BED FROM THE COMMODE WITH THE HELP OF BRANDON GARCIA. BEDSIDE TABLE AND CALL LIGHT WITHIN REACH. PT NEEDS NOTHING ELSE AT THIS TIME.
--- NOTE | 2017-07-04 23:00 | NUR ---
PER PT REQUEST I GOT HER FRESH ICE WATER.
--- NOTE | 2017-07-04 23:01 | NUR ---
HELPED PT TO THE BEDSIDE COMMODE AND BACK TO BED WITH THE HELP OF BRANDON GARCIA. BEDSIDE TABLE AND CALL LIGHT WITHIN REACH. PT NEEDS NOTHING ELSE AT THIS TIME.
--- NOTE | 2017-07-05 02:23 | NUR ---
PATIENT APPEARS TO BE SLEEPING COMFORTABLY. SCDS ON. RIGHT LEG ELEVATED WITH KNEE STRAIGHT. CALL LIGHT IN REACH.
--- NOTE | 2017-07-05 04:12 | NUR ---
ASSISTED PATIENT UP TO BS, 2PA W/FWW. PATIENT REQUEST PRN PAIN MEDS WHICH WERE GIVEN TO HER. HER KNEE IS SORE, IS THE REST OF HER BODY. PATIENT CONTINUES TO HAVE A CONGESTED COUGH. ASSISTED HER BACK INTO BED. NO OTHER NEEDS AT THIS TIME.
--- NOTE | 2017-07-05 04:38 | NUR ---
HELPED BRANDON GARCIA GET PT TO THE BEDSIDE COMMODE AND BACK TO BED. BEDSIDE TABLE AND CALL LIGHT WITHIN REACH.
--- NOTE | 2017-07-05 06:46 | NUR ---
PATIENT SLEPT WELL BETWEEN 2029 AND 399. PAIN WELL CONTROLLED. PRN PAIN MEDS X2. 2PA UP TO BSC W/FWW. URINE OUTPUT QS. SMALL BM THIS AM. NO NEW DRAINAGE ON DRESSING. RUPINDER WRAP OVER ABD PADS AND MEPILEX. SCDS BILATERALLY. BERNADETTE HOSE ON LEFT LEG. PILLOW UNDER RIGHT FOOT TO ELEVATE LEG.
--- NOTE | 2017-07-05 08:35 | NUR ---
THIS WATCH DIAL PRINTER AND CHARGE NURSE ASSISTED PATIENT ONTO BEDSIDE COMMODE. 2 PERSON WITH FWW. THIS WATCH DIAL PRINTER AND ROSALIND GARCIA ASSISTED PATIENT FROM BEDSIDE COMMODE TO CHAIR. PATIENT STATES THAT SHE ASKED FOR PAIN MEDICATION EARLIER, BUT HAS NOT RECIEVED IT YET. CHARGE NURSE NOTIFIED. PATIENT SITTING UP IN CHAIR RESTING. PATIENTS IN ROOM. CALL LIGHT WITHIN REACH. NO OTHER NEEDS AT THIS TIME.
[2017-07-05] MEDS ORDERED: OXYCODONE HCL5 MG PO (08:50)
[2017-07-05] MEDS ORDERED: NEURONTIN300 MG PO (08:51)
--- NOTE | 2017-07-05 09:00 | NUR ---
ROUNDED ON PATIENT AND RECIEVED VERABL HANDOFF FROM DRAW PRESS OPERATOR NURSE. PATIENT SITTING UP IN RECLINER, PATIENT STATES " I HAD A PRETTY GOOD NIGHT, I AM READY TO GO TO [facility] TODAY". DR. NOVA ROUNDED ON PATIENT, PLAN TO DISCHARGE TODAY, INSCISION C/D/I, NO SIGNS OF INFECTION. PATIENT REFUSED SHOWER. COMPLAINTS OF DIARRHEA FROM STOOL SOFTENERS, HOLD MIRALAX TODAY.
--- NOTE | 2017-07-05 10:32 | NUR ---
PT IS RESTING IN BED SAFELY WITH CALL LIGHT IN REACH. PT IS DRESSED AND READY TO BE DISCHARGED. VITALS TAKEN.
== END 2017-07-05 11:45 | DRG 467 ==
LOC: MS 11:04
PROVIDERS: ADMIT Specialist
PROC: 0SPV0JZ Removal of Synthetic Substitute from Right Knee Joint, Tibial Surface, Open Approach (ICD-10-PCS; 2017-07-01)
PROC: 05HY33Z Insertion of Infusion Device into Upper Vein, Percutaneous Approach (ICD-10-PCS; 2017-07-01)
PROC: 0SRV0JZ Replacement of Right Knee Joint, Tibial Surface with Synthetic Substitute, Open Approach (ICD-10-PCS; principal; 2017-07-01 13:00)
DX: T84.53XA Infection and inflammatory reaction due to internal right knee prosthesis, initial encounter (principal); E87.1 Hypo-osmolality and hyponatremia; Z68.43 Body mass index [BMI] 50.0-59.9, adult; E87.70 Fluid overload, unspecified; E66.01 Morbid (severe) obesity due to excess calories; R25.3 Fasciculation; K21.9 Gastro-esophageal reflux disease without esophagitis; I12.9 Hypertensive chronic kidney disease with stage 1 through stage 4 chronic kidney disease, or unspecified chronic kidney disease; N18.3 Chronic kidney disease, stage 3 (moderate); M79.7 Fibromyalgia; G62.9 Polyneuropathy, unspecified; D64.9 Anemia, unspecified; Z79.899 Other long term (current) drug therapy; Z88.3 Allergy status to other anti-infective agents; Z88.0 Allergy status to penicillin; Z88.8 Allergy status to other drugs, medicaments and biological substances; Z79.1 Long term (current) use of non-steroidal anti-inflammatories (NSAID); Z79.82 Long term (current) use of aspirin; Z79.891 Long term (current) use of opiate analgesic
CPT/HCPCS: 01320; 36415; 36569; 71045; 71046; 80048; 80053; 80202; 81001; 82607; 82728; 82746; 83540; 83880; 83930; 83935; 84443; 84466; 85025; 87070; 87075; 87077; 87186; 87205; 93005; 93010; 93306; 94640; 94668; 94762; 97110; 97116; 97162; 97530; C1751; C1776; J0696; J1170; J1885; J2250; J2270; J2274; J2405; J2704; J3010; J3370; J7050

== ENCOUNTER 2017-11-26 15:37 | Inpatient (IN) | payer MEDICARE, OTHER ==
[~2017-11-26] VITALS: Ht 162.6 cm; Wt 128.4 kg
[~2017-11-26 15:37] MED LIST changes: +LASIX20 MG PO; +LEVAQUIN750 MG PO; +VANCO 1.251.25 GM/25 IV
--- NOTE | 2017-12-08 15:45 | NUR ---
PATIENT HERE TODAY FOR PREADMISSION APPOINTMENT. SHE IS ACCOMPANIED BY HER MAN. SHE IS SCHEDULED ON 12/22/17 FOR A LEFT TOTAL KNEE REPLACEMENT. IT IS RECALLED SHE HAD A RIGHT TOTAL KNEE REPLACEMENT IN JUNE. SHE WOULD LIKE PHYSICAL THERAPY SET UP AT [facility] IN [place]. SHE IS CURRENTLY USING A 4 WHEELED WALKER AND STATES SHE HAS EVERYTHING FROM HER LAST SURGERY AT HOME. THIS INFORMATION WILL BE SENT TO DR NOVA AND MICHAEL PLANNING FOR FURTHER FOLLOW UP.
[2018-04-28] MEDS ORDERED: CARTIA XT180 MG PO (14:35)
[2018-04-28] MEDS ORDERED: CARTIA XT120 MG PO (14:36)
[2018-04-28] MEDS ORDERED: ELIQUIS5 MG PO (14:37)
[2018-04-28] MEDS ORDERED: FUROSEMIDE20 MG PO (15:00)
[2018-04-28] MEDS ORDERED: MELOXICAM7.5 MG PO (15:01)
[2018-04-28] MEDS ORDERED: PENTOXIFYLLINE400 MG PO (15:02)
--- NOTE | 2018-04-28 15:09 | NUR ---
PATIENT AND HERE TODAY FOR PREADMISSION APPOINTMENT. SHE IS SHEDULED TO HAVE A LEFT TOTAL KNEE REPLACEMENT ON 05/11/2018. SHE HAS RIGHT TOTAL KNEE REPLACEMENT AND APPEARS TO BE DOING WELL. SHE REPORTS NOT HAVING ANY STEPS INTO HER HOME HER HAS BUILT A RAMP. SHE HAS NO STEPS IN HER HOME. SHE HAS A WALKER AND SHOWER BENCH, WALK IN SHOWER AND HAND RAILS IN HER HOME SHE WOULD LIKE TO BE DISCHARGED TO [facility] ON SWING BED STATUS AFTER HER STAY HERE. SHE WOULD LIKE PHYSICAL THERAPY SET UP AT [facility] SHE LIVES IN [place]. THIS INFORMATION WILL BE FAXED TO DR NOVA OFFICE AND CASE MANAGEMENT FOR FURTHER FOLLOW UP
--- NOTE | 2018-05-11 13:58 | NUR ---
05/11/18 1358 Anila Robison 1335- PT ARRIVES TO PACU EASILY AROUSABLE TO VOICE. PT REPORTS NO PAIN OR NAUSEA. PT HAD A SPINAL AND IS UNABLE TO MOVE HER TOES AT THIS TIME AND REPORTS NUMBNESS. PT IS CONCERNED THAT SHE CAN'T MOVE HER LEGS. EDUCATED PT THAT THIS IS NORMAL THE SPINAL NEEDS TIME TO WEAR OFF. THE PT STATES UNDERSTANDING. RESP EVEN AND UNLABORED. OXYGEN SAT MID TO HIGH 90'S ON RA. 1338- CRYOCUFF PLACED BY BRANDON ISBELL. 1342- BLOOD SUGAR 124 TAKEN BY BRANDON ISBELL. 1350- PT'S OXYGEN SAT DROPPED TO 87% ON RA. PT ENCOURAGED TO COUGH AND DEEP BREATHE. PT IS ABLE TO PERFORM THESE TASKS AND OXYGEN SAT INCREASED TO MID TO HIGH 90'S ON RA. 1357- PT EATING ICE CHIPS. TOLERATING WELL. PT GIVEN CHAP STICK PER REQUEST.
--- NOTE | 2018-05-11 14:04 | OR ---
[facility] [address] [place], [place] [address] Signed DATE OF OPERATION: 05/11/2018 SURGEON: Candi Grove MD PREOPERATIVE DIAGNOSIS: Degenerative joint disease, left knee. POSTOPERATIVE DIAGNOSIS: Degenerative joint disease, left knee. PROCEDURE PERFORMED: Left total knee arthroplasty with computer navigation. SERVICE LINE LAYER: ALEXSANDRA Angel. Lorena was present and critical for all portions of the procedure. ANESTHESIA: Spinal. BLOOD LOSS: 150 mL. TOURNIQUET TIME: Zero. IMPLANTS: Philip Triathlon size 4 femur, 3 tibia, 11 mm insert, and 32 patella. BRIEF HISTORY: Yolanda is a 77-year-old female with bilateral knee arthritis. She had undergone a successful right total knee and wished to proceed with a left. Risks and benefits of operative treatment were discussed with her and she elected to proceed. DESCRIPTION OF PROCEDURE: Once consent was obtained, she was taken to the operating room. After adequate anesthesia, she was placed on operating room table. All downside pressure points well padded. The left leg was placed in well-padded proximal thigh tourniquet, placed on a hip bump. Leg was then prepped and draped in the standard sterile fashion and the knee was approached through a standard straight incision anteriorly. This was taken through Electronically Signed By: CANDI GROVE MD 05/11/18 1404 PATIENT NAME: YOLANDA FRANCIS OPERATIVE REPORT DATE OF : 42 REPORT #: [id number] PHYSICIAN: CANDI GROVE MD PCP: YE ANTON MD REPORT IS CONFIDENTIAL AND NOT TO BE RELEASED WITHOUT AUTHORIZATION [facility] [address], [place] [address] Signed skin and subcutaneous tissue. A median parapatellar arthrotomy was performed. All bleeders were cauterized as we went. The infrapatellar fat pad was excised and the MCL was elevated of a sleeve around the posterior medial corner. The knee was then flexed and the menisci were transected as was the ACL. The navigation guide was pinned to the distal femur and the femur was registered with the computer. The distal femoral cutting block was then pinned in neutral alignment. The distal femoral cut was made and all osteophytes were removed. The distal femur was sized to a 4, which matched for opposite side. The AP cutting block was then pinned in line with the epicondylar axis. Anterior, posterior, and chamfer cuts were made. All bone was excised and the remaining osteophytes were removed. The attention was turned to proximal tibia. The navigation guide was pinned to the proximal tibia and the tibia was registered with the computer. The cutting block was then pinned in alignment to take 2 mm off the most involved posterior lateral corner. The bone cut was made with care taken to protect the patellar tendon and MCL. The meniscal remnants removed, posterior osteophytes removed off the femur. Posterior release was performed. The flexion and extension gaps were sized, found to be symmetric at 11 mm. The trials were positioned. Knee was taken through range of motion and found to be stable from 0 to about 100 degrees, which is pretty close to the thigh calf impingement. The patella was cut, sized, and drilled for a 32 patella. The distal femoral drill holes were made and keel punch was used for the tibia. The bone surfaces were pulse lavaged and packed with a hydrogen peroxide soaked sponge. The cement was mixed and reached proper consistency, it was placed on all implants on bone surfaces. Tibia was impacted into position first followed by the polyethylene. All excess cement removed. The femur was impacted in position. Again, any remaining overflow was removed. The knee was extended and nicely loaded. The patella was clamped and any remaining cement was removed. The cement was allowed to harden. Once it hardened sufficiently, the knee was flexed and the remaining cement was removed. The periarticular soft tissues were injected with 100 mL of ropivacaine and Toradol mixture. The On-Q pump was then placed in the adductor canal from the suprapatellar pouch. The arthrotomy was then closed using #2 Stratafix in the subcutaneous tissue with 0 Stratafix, and the skin with Dermabond. Wound was dressed with a CARYN wound dressing and Sree wrap. She tolerated the procedure well. All sponge, needle, and instrument counts were correct. Candi Grove MD BA/MODL /[id number] Electronically Signed By: CANDI GROVE MD 05/11/18 1404 PATIENT NAME: YOLANDA FRANCIS OPERATIVE REPORT DATE OF : 42 REPORT #: [id number] PHYSICIAN: CANDI GROVE MD PCP: YE ANTON MD REPORT IS CONFIDENTIAL AND NOT TO BE RELEASED WITHOUT AUTHORIZATION [address] [address] Signed Copies: ~ Electronically Signed By: CANDI GROVE MD 05/11/18 1404 PATIENT NAME: YOLANDA FRANCIS CLARITA OPERATIVE REPORT DATE OF : 42 REPORT #: [id number] PHYSICIAN: CANDI GROVE MD PCP: YE ANTON MD REPORT IS CONFIDENTIAL AND NOT TO BE RELEASED WITHOUT AUTHORIZATION
--- NOTE | 2018-05-11 15:24 | NUR ---
LEFT WRIST IV CDI ON ARRIVAL TO MED SURG.
--- NOTE | 2018-05-11 15:43 | NUR ---
PT RESTING IN HER BED AND REPORT RECEIVED FROM INDUCTION BRAZER AT 1510. PT DENIES ANY PAIN AND IS NUMB FROM HER KNEES DOWN. DR CORTES NOW IN THE ROOM CHECKING ON THE PT.
--- NOTE | 2018-05-11 15:45 | NUR ---
Medications reconciled using pharmacy records, physician chart notes and patient interview
--- NOTE | 2018-05-11 16:19 | NUR ---
SPINAL LEVEL REMAINS AT THE PT'S KNEES. SHE DENIES ANY PAIN OR OTHER PROBLMES. SHE HAS HAD NO NAUSEA SINCE SHE WAS IN THE PACU. PT GIVEN A SIP OF WATER AT THIS TIME. DRESSING REMAINS INTACT WITH THE CRYO CUFF FULL OF ICE WATER.
--- NOTE | 2018-05-11 16:52 | NUR ---
PT STOOD WITH PHYSICAL THERAPY AND A 2PA AND WAS WEAK ON HER FEET. PT BECAME A BIT DIZZY AND LAYED BACK INTO HER BED. BP NOW IS 124/55.
--- NOTE | 2018-05-11 18:23 | NUR ---
PT'S SPINAL HAS RESOLVED.
--- NOTE | 2018-05-11 18:46 | NUR ---
Pt resting in bed with her spinal resolved. Her cbg this evening was 207 and covered with insulin. Sat in the upper 90's on 2l via nc. Loni dressing, scd, will hose, cyro cuff all on and running correctly. VSS. Pt had n/v in pacu but none since. Pt is pain free and is moving her feet without difficulty.
--- NOTE | 2018-05-11 19:20 | NUR ---
RECEIVED REPORT FROM DAY SHIFT RN. PATIENT IS RESTING IN BED WATCHING TV. PATIENT DENIES ANY PAIN. AT THE BEDSIDE. NO NEEDS NOTED. CALL LIGHT IN REACH.
--- NOTE | 2018-05-11 20:30 | NUR ---
PATIENT ASSESEMENT COMPLETED. PATIENT ASSISTED TO USE THE [facility]. PATIENT WAS A 2PA W/FWW. PATIENT WAS ABLE TO VOID. PATIENT IS BACK RESTING IN BED. PATIENT HAS TEDHOSE AND FOOT SCDS APPLIED TO BILAT LOW EXT. PATIENT HAS CRYO APPLIED TO LEFT KNEE, CRYO REFILLED WITH ICE. PATIENT IS ON RA, CPOX INPLACE. PATIENTS EVENING MEDICATIONS GIVEN PER ORDER. PATIENT HAS CARYN IN PLACE, DRAINAGE NOTED, AND GREEN LIGHT FLASHING. ON-Q PUMP IN PLACE. SCOPE PATCH IN PLACE BEHIND RIGHT EAR. PATIENT DENIES ANY PAIN. PATIENTS IS PRESENT. PATIENT DENIES ANY NEEDS. CALL LIGHT IN REACH. IV INFUSING.
--- NOTE | 2018-05-11 23:54 | NUR ---
PATIENT IS RESTING IN BED WITH EYES CLOSED. CPOX IN PLACE, READINGS ARE WNL. PATIENT IS ON RA. IV INFUSING. CALL LIGHT IN REACH. ASLEEP ON COUCH.
--- NOTE | 2018-05-12 02:11 | NUR ---
PATIENTS VITALS TAKEN AND RECORDED. PATIENT ASSISTED TO THE RESTROOM. PATIENT IS A 2PA W/FWW TO THE [facility]. PATIENT TOLERATED ACTIVITY WELL. PATIENT WAS ABLE TO VOID. PATIENT IS BACK IN BED RESTING. PATIENT HAS FOOT SCDS, TEDHOSE ON VILAT LOW EXT. PATIENT HAS CRY APPLIED TO LEFT KNEE AND REFILLED WITH ICE. PATIENT HAS NO INCREASE IN DRAINAGE ON PIC. ON-Q IN PLACE. CARYN HAS GREEN LIGHT FLASHING. PATIENT RATES PAIN AT A 2/10 AFTER ACTIVITY. PATIENT DENIES THE NEED FOR PAIN MEDICATION AT THIS TIME. PATIENT DENIES ANY FURTHER NEEDS. AAOX3. CALL LIGHT IN REACH.
--- NOTE | 2018-05-12 03:05 | NUR ---
PATIENT IS RESTING IN BED WITH EYES CLOSED. CPOX READINGS ARE WNL. CALL LIGHT IN REACH.
--- NOTE | 2018-05-12 05:18 | NUR ---
PATIENT RESTED WELL THROUGHOUT THE SHIFT. PATIENT IS ON AN ADA DIET, TOLERATEING WELL, NO COMPLAINTS OF NAUSEA. PATIENT IS ON RA, CPOX IN PLACE. PT/OT. PATIENT HAS FOOT SCDS AND TEDHOSE ON BILAT LOW EXT. PATIENT HAS CRYO APPLIED TO LEFT KNEE. PATIENT HAS ON-Q TO 8. CARYN IN PLACE, FLASHING GREEN. DRAINGE NOTED WITH AN INCREASE OVERNIGHT. PATIENT HAS SCOPE BEHIND RIGHT EAR. PATIENT HAS DENIED THE NEED FOR PAIN MEDICATION. PATIENT IS A 2PA W/FWW TO [facility]. PATIENT IS AAOX3. PATIENT USES CALL LIGHT APPROPRIATELY.
--- NOTE | 2018-05-12 05:57 | NUR ---
PATIENTS MORNING MEDICATIONS GIVEN PER ORDER. PATIENT DENIES ANY PAIN. PATIENT IS RESTING IN BED. CRYO, SCDS, TEDHOSE, IN PLACE. CARYN HAS GREEN LIGHT SLIGHT IN CREASE IN DRAINAGE. ON-Q SE TO 8. AAOX3. NO NEEDS NOTED. CALL LIGHT IN REACH. ASLEEP ON COUCH.
--- NOTE | 2018-05-12 08:17 | NUR ---
Pt awake, alert and oriented x3. Pt is on ra, resp even and non labored. Pt reports pain level of 2/10 in left knee. Personal supplies and call light within reach.
--- NOTE | 2018-05-12 09:00 | NUR ---
Left knee dressing is approx 50% saturated with sarosang drainage. Dressing is intact at all borders. Marika dressing is intact/on-q is intact as well. Green flashing "ok" present of marika device.
--- NOTE | 2018-05-12 09:23 | NUR ---
PT WANTS TO GO TO THE SWING BED PROGRAM AT [facility]. CALLED AND LEFT MESSAGES FOR EVELYN AT [facility]. CALLED AND SPOKE WITH SHANTI AT [facility] AND HE SAID TO FAX CLINICALS TO THEM AT [phone].
--- NOTE | 2018-05-12 09:48 | NUR ---
FAXED CHART NOTES INCLUDING FACE SHEET, H AND P X 2, OP NOTE, PROG NOTE, PT EVAL TO H FOR SWING BED ADMISSION. RECIEVED FAX CONFIRMATION.
--- NOTE | 2018-05-12 11:59 | NUR ---
PT UP AMBULATING IN HALLS WITH P.T. FOR FIRST TIME SINCE SURGERY. IS FOLLOWING CLOSE BEHIND. PT STOPPED WHEN SHE SAW ME, AND WARMLY GREETED ME. I GAVE ENCOURAGEMENT TO HER, WILL FOLLOW NEEDED
--- NOTE | 2018-05-12 14:14 | NUR ---
PT SITTING UP IN CHAIR AT THIS TIME, RESP EVEN AND NON LABORED. PT REPORTS 5/10 LEFT KNEE PAIN. PERSONAL SUPPLIES WITHIN REACH.
--- NOTE | 2018-05-12 14:43 | NUR ---
Left knee dressing has more sarosang drainage noted throughout dressing. All borders of dressing are closed, no leakage noted. On-Q pump and marika dressing intact. Green light flashing ok on device. Bulky dressing over skin site dressing; CDI.
--- NOTE | 2018-05-12 15:12 | NUR ---
SPOKE WITH DR. NOVA REGARDING NEW PROGRESSION OF 100% SAROSANG SATURATION TO LEFT KNEE DRESSING. COMMUNICATED TO DR. NOVA THAT THE DRESSING STILL REMAINS CLOSED AT ALL BORDERS, CARYN AND ON-Q INTACT. CARYN DEVICE FLASHING GREEN INDICATING OK AT THIS TIME. THIS AM PT'S DRESSING WAS APPROX 50% SATURATED DURING AM ASSESSMENT. DR. NOVA STATED PT IS OK TO WORK WITH PT TODAY, AGAIN.
--- NOTE | 2018-05-12 17:59 | NUR ---
EDDI CHANGED PER TELEPHONE ORDER. CARYN REMOVED, DRESSING EDGE LIFTED UP DRAINAGE RAN OFF ON PAD PLACED UNDER LEG. CLEAR MESH OVER INCISION, WEEPING DRAINAGE NOTED MID INCISION AND DISTAL INCISION. NEW CARYN DRESSING PLACED, EDGES SEALED, VACUUM RE-ESTABLISHED, ABDS PLACED, RUPINDER WRAP PLACED WITH COMPRESSION. SOLE TAYLOR ASSISTED THIS RN WITH DRESSING CHANGE.
--- NOTE | 2018-05-12 18:13 | NUR ---
PATIENT UP TO BATHROOM AND BACK TO BED, 2PA FWW. CRYO FILLED. CALL LIGHT IN REACH. NO FURTER NEEDS AT THIS TIME.
--- NOTE | 2018-05-12 19:00 | NUR ---
CHARGE ROUNDING DONE AT BEDSIDE. DRESSING ON LEFT KNEE SHOWS EXCESSIVE RED DRAINAGE UNDER THE CARYN. DAYSHIFT CHARGE, JASMIN CONTACTED DR. NOVA.
--- NOTE | 2018-05-12 19:00 | NUR ---
RECEIVED REPORT FROM DAY SHIFT RN. PATIENT IS RESTING IN BED. PATIENTS CARYN IS OBSEREVED TO HAVE INCREASED DRAINGE. JASMIN RN TO CALL .
--- NOTE | 2018-05-12 19:22 | NUR ---
ADMIN OXYCODONE 10MG PO FOR LEFT LEG PAIN.
--- NOTE | 2018-05-12 19:30 | NUR ---
CALLED DUE TO EXTENSIVE DRAINAGE POOLED UNDER CARYN DRESSING. CARYN REMAINS SEALED AND INTACT. GAVE ORDER TO CHANGE OUT CARYN DRESSING AT THIS TIME, ADD ABD PADS AND RUPINDER WRAP WITH COMPRESSION. ALSO NOTIFIED AND UPDATED HE IS AT NURSES STATION AT THIS TIME.
--- NOTE | 2018-05-12 19:35 | NUR ---
DR. NOVA NOTIFIED REGARDING NEW BLOOD POOLING UNDER LEFT KNEE DRESSING. DRESSING TO BE CHANGED OVER TO NEW CARYN, PER MARJAN CASTELLANOS RN.
--- NOTE | 2018-05-12 20:13 | NUR ---
CALLED TO REPORT FINDINGS WITH DRESSING CHANGE, NEW ORDERS OBTAINED.
--- NOTE | 2018-05-12 20:40 | NUR ---
TRANSEMIC ACID GIVEN PER ORDER. PATIENT EDUCATED ON MEDICATION AND ALL QUESTIONS ANSWERED. IV INFUSING PER ORDER.
--- NOTE | 2018-05-12 21:00 | NUR ---
JAM TAYLOR ASSISTED WITH CARYN DRESSING CHANGE. SURGICAL SITE INTACT. NEW CARYN DRESSING APPLIED PER GUIDANCE FROM JASMIN TAYLOR. CARYN IS VIBRATING BUT GREEN LIGHT IS FLASHING. PATIENT TOLERATED DRESSING CHANGE WELL. ABD APPLIED OVER CARYN AND RUPINDER WRAP APPLIED OVER TOP. PATIENT DENIES ANY NEEDS. CALL LIGHT IN REACH.
--- NOTE | 2018-05-12 21:35 | NUR ---
PATIENT ASSESMENT COMPLETED. PATIENT ASSISTED TO THE [facility] A 2PA W/FWW. MAX SUPPORT PROVIDED FOR LEFT KNEE. PATIENT WAS ABLE TO VOID 800ML. PATIENT IS NOW BACK IN BED RESTING. FOOT SCDS, AND TEDHOSE IN PLACE IN BILAT LOW EXT. PATIENTS CRYO REFILLED WITH ICE AND APPLIED TO LEFT KNEE. CARYN IS 25% SATURATED AND DRAINAGE IS UNCHANGED FROM NEW DRESSING PLACEMENT. CARYN IS VIBRATING INT BUT GREEN LIGHT IS FLASHING. ON-Q SET TO 8. PATIENTS VITAL TAKEN AND RECORDED. INTAKE AND OUPUT RECORDED. PATIENT RATES PAIN AT A 3/10. PATIENT GIVEN PRN PAIN MEDICATION PER REQUEST AND ORDER. PATIENTS EVENING MEDICATIONS GIVEN PER ORDER. PATIENTS IV IS NOW SL AFTER TRANCEMIC ACID IS COMPLETED INFUSING. PATIENT IS AAOX3. PATIENT DENIES ANY FURTHER NEEDS. CALL LIGHT IN REACH.
--- NOTE | 2018-05-12 22:50 | NUR ---
V/S AND I&O DONE AND CHARTED. 2 PA TO BEDSIDE COMMODE AND BACK TO BED USING WALKER. CRYO CUFF AND ICE WATER REFILLED. IS IN THE ROOM. CRYO, SCD ARE BACK ON. CALL LIGHT WITHIN REACH.
--- NOTE | 2018-05-12 23:20 | NUR ---
PATIENT CALLED AND REQUESTED PRN PAIN MEDICATION. PATIENT RATES PAIN AT A 3/10. PATIENT GIVEN PRN PAIN MEDICATION PER ORDER. PATIENTS CARYN REMAINS 25% SATURATED. CRYO REAPPLIED TO LEFT KNEE. NO FURTHER NEEDS. NOTED. CALL LIGHT IN REACH.
--- NOTE | 2018-05-13 01:40 | NUR ---
PATIENT IS RESTING IN BED WITH EYES CLOSED. CPOX REDINGS ARE WNL. CALL LIGHT IN REACH.
--- NOTE | 2018-05-13 03:37 | NUR ---
ASSISTED BRANDON WHIPPLE TO HAVE PATIENT USE THE BEDSIDE COMMODE. PATIENT IS BACK IN BED. CRYO SCD AND CONTINUOUS PULSE OXIMETRY ARE BACK ON. CRYO CUFF AND ICE WATER REFILLED. CALL LIGHT AND BEDSIDE TABLE WITHIN REACH.
--- NOTE | 2018-05-13 03:40 | NUR ---
PATIENT ASSISTED TO THE RESTROOM A 2PA W/FWW TO BSC. PATIENTS LEFT LEG SUPPORT W/MOVEMENT. PATIENT TOLERATED ACTIVITY WELL. PATIENT WAS ABLE TO VOID. PATIENT RATES PAIN AT A 2/10. PATIENT GIVEN PRN PAIN MEDICATION PER ORDER. PATIENT IS BACK IN BED RESTING. PATIENT HAS TEDHOSE AND FOOT SCDS APPLIED TO BILAT LOW EXT. PATIENTS CRYO REFILLED WITH ICE AND APPLIED TO LEFT KNEE. PATIENTS CARYN DRESSING IS ABOUT 85% SATURATED. CARYN CONTINUES TO VIBRATE INT, BUT GREEN LIGHT IS FLASHING. NO FURTHER NEEDS NOTED. CALL LIGHT IN REACH.
--- NOTE | 2018-05-13 05:11 | NUR ---
PATIENT RESTED WELL THROUGHOUT THE SHIFT. PATIENT IS ON AN ADA DIET, TOLERATING IT WELL, AND NO COMPLAINTS OF NAUSEA. PATIENT HAS FOOT SCDS AND TEDHOSE APPLIED TO BILAT LOW EXT. PATIENT IS SL AND IV FLUSHES WELL. PATIENT RECEIVED X1 DOSE OF TRASEMIC ACID. PATIENTS DRESSING CHANGED PER DR NOVA ORDER. PATIENTS CARYN IS 85% SATURATED, GREEN LIGHT FLASHING, AND INT VIBRATING. PATIENT HAS ON-Q IN PLACE DIAL SET TO 8. PATIENT HAS BEEN ON BEDREST W/BSC COMMODE PRIVILEGES. PATIENT HAS CRYO APPLIED TO LEFT KNEE. PATIENT IS A 2 PA W/FWW. PATIENT HAS SCOPE PATCH BEHIND RIGHT EAR. PATIENT IS AAOX3. PATIENT IS AAOX3 AND USES CALL LIGHT APPROPRIATELY.
--- NOTE | 2018-05-13 06:09 | NUR ---
PATIENTS RATES PAIN AT A .5/10. PATIENTS MORNING MEDICATIONS GIVEN PER ORDER. PATIENT ASSISTED TO THE BSC A 2PA W/FWW. PATIENT WAS ABLE TO VOID. PATIENT IS BACK IN BED RESTING. PATIENT HAS FOOT SCDS AND TEDHOSE APPLIED TO BILAT LOW EXT. PATIENTS CRYO REFILLED WITH ICE AND APPLIED TO LEFT KNEE. CARYN FLASHING GREEN LIGHT. ON-Q TO 8. NO FURTHER NEEDS. NOTED. CALL LIGHT IN REACH.
--- NOTE | 2018-05-13 07:30 | NUR ---
Received hand off report from night warehouse selector RN. Pt was alert and oriented. Responding to questions appropriately. in room with pt. Pt reports 0 out of 10 pain at this time. Dressing was saturated with sanguineous fluid. Dressing intact. Call light in reach.
--- NOTE | 2018-05-13 07:45 | NUR ---
BG levels were obtained using Accu check device. BG level was 133. Pt states this is higher than usual as she usually ranges 95-105 at home. Pt verbalizes understanding that this is probably due to meds. Pt has no concerns or questions at this time.
--- NOTE | 2018-05-13 08:30 | NUR ---
AM PO meds given. Pt able to swallow independently without difficulty. This SN and instructor assisted pt to bedside commode using walker. Gait unsteady and weak. Pt voided without difficulty. Urine clear yellow, no odor noted. Pt was returned to bed. Call light within reach. in room.
--- NOTE | 2018-05-13 09:40 | NUR ---
PO pain med given in anticipation of pain due to physical therapy. Pt reports 1 out 10 pain level that increases to 2 out of 10 pain during ambulation.
--- NOTE | 2018-05-13 09:41 | NUR ---
PT RESTING SUPINE IN BED, ASSESSMENT COMPLETED. PT REPORTS PAIN OF 2/10 TO LEFT KNEE THAT IS WORSE WITH MOVEMENT. CMS INTACT DISTAL TO LEFT KNEE. LEFT KNEE CARYN DSG APPEARS SATURATED BUT INTACT WITH GREEN LIGHT FLASHING AND APPEARS UNCHANGED FROM HOW IT APPEARED THIS MORNING DURING SHIFT REPORT. PT REQUESTED AND RECEIVED PRN PO 10MG OXYCODONE. CALL LIGHT AND H20 IN REACH. PT DENIES FURTHER NEEDS/CONCERNS. FAMILY REMAINS AT BEDSIDE.
--- NOTE | 2018-05-13 09:51 | NUR ---
STUDENT NURSE IN ROOM TO TAKE VITALS AND INTAKE AND OUTPUT. THIS PRINTING PRESS MACHINE OPERATOR ASSISTED PATIENT WITH A BED BATH. LINENS CHANGED NEEDED. CALL LIGHT IN REACH. CRYO STILL FULL WITH ICE, NO OTHER NEEDS AT THIS TIME.
--- NOTE | 2018-05-13 10:50 | NUR ---
THIS FREQUENCY CHECKER REFILLED PATIENTS CRYO CUFF AND ICE WATER. PATIENT CALL LIGHT IN REACH. NO OTHER NEEDS AT THIS TIME.
--- NOTE | 2018-05-13 11:00 | NUR ---
This SN and HEALTH CARE ASSISTANT assisted pt to bedside commode using walker. Gait continues to be unsteady and weak. Pt voided without difficulty. Urine clear yellow, no odor noted. Pt was returned to bed. Call light within reach.
--- NOTE | 2018-05-13 12:30 | NUR ---
Pt sitting up in bed, pt ate 100% of lunch, 1 unit sliding scale insulin administered. Family at bedside. Marika dsg remains saturated but intact with green light flashing to marika wound vac. On Q pump remains set to 8. call light and h20 in reach. Pt denies needs/concerns. cms intact distal to left le.
--- NOTE | 2018-05-13 12:45 | NUR ---
PT WAS LAYINGIN BED EATING WITH HER AT . DIDN'T SLEEP WELL, INCISION BEGAN TO BLEED. NO P.T. UNTIL STOPPED. PT WAS SOMEWHAT DISCOURAGED, BUT DOING OK. EXTENDED A BLESSING, WILL CONTINUE TO FOLLOW
--- NOTE | 2018-05-13 13:30 | NUR ---
This SN and TAPE SEWER assisted pt to bedside commode using walker. Pt voided without difficulty. Pt states an increase in pain during ambulation. Pt denies PRN pain med. Pt verbalizes no other needs at this time. Call light in reach. Family at bedside.
--- NOTE | 2018-05-13 14:02 | NUR ---
BG 159. Pt verbalizes that this is higher than her normal range but understands elavation is due to meds.
--- NOTE | 2018-05-13 14:58 | NUR ---
CALLED IN REGARDS TO PATIENT PARTICIPATING WITH PHYSICAL THERAPY. ORDER OK TO WORK WITH PHYSICAL THERAPY NO NEED BENDING.
--- NOTE | 2018-05-13 16:13 | NUR ---
Pt resting supine in bed, left knee sree wrap appears to be comming off. Sree wrap removed and rewrapped with new SREE wrap, cryo cuff reapplied. dsg remains saturated but intact and marika dsg appears to be maintaining suction with green light flashing. Distal cms to left le intact. Pt denies pain. Pt provided with fresh ice water. Call light also in reach. Pt denies needs/concerns. Family remains at bedside.
--- NOTE | 2018-05-13 20:40 | NUR ---
ASSESSMENT COMPLETE. MEDICATIONS GIVEN (SEE EMAR). BS WNL, NO INSULIN SS GIVEN. PT EDUCATED ON SIGNS AND SYMPTOMS OF HYPOGLYCEMIA, PT VERBALIZED UNDERSTANDING. VSS, IV SITE INFILTRATED WHEN FLUSHED. PT INITIALLY RELUCTANT FOR RN TO PLACE NEW IV SITE, PT EDUCATED ON IMPORTANCE FOR IV ACCESS. PT REMAINS RELUCANT AT TIMES. WILL NOTIFY DR NOVA IF PT PT REMAINS RELUCTANT FOR NEW IV AND REFUSES CREOSOTING ENGINEER TO PLACE NEW IV. CARYN DRESSING FULLY SATURATED, NO WHITE FROM CARYN DRESSING NOTED. NO NEW DRAINAGE/SHADOWING NOTED FROM SHIFT REPORT. DR NOVA AWARE OF SATURATION PER RN WILLOW AT SHIFT REPORT. GREEN OKAY LIGHT FLASHING, QPUMP TO [address] CYRO CUFF WITH BILATERAL BERNADETTE HOSE AND SCD'S IN PLACE. PT DENIES NEEDS, CALL LIGHT IN REAACH.
--- NOTE | 2018-05-13 20:45 | NUR ---
VITALS ,I&OS AND BLOOD SUGAR DONE AND CHARTED. FRESH ICE WATER GIVEN. BEDSIDE TABLE AND CALL LIGHT IN REACH. PT NEEDS NOTHING MORE AT THIS TIME.
--- NOTE | 2018-05-13 22:15 | NUR ---
CRYO REFILLED WITH ICE. PATIENT DENIES FURTHER NEEDS. CALL LIGHT IN REACH.
--- NOTE | 2018-05-13 22:30 | NUR ---
SCHEDULED TYLENOL AND PRN OXYCODONE ADMINISTERED FOR 3/10 PAIN IN LEFT KNEE. (SEE EMAR). CYRO ICE CUFF IN PLACE. BILATERAL SCD'S AND BERNADETTE HOSE IN PLACE. PT DENIES FURTHER NEEDS, CALL LIGHT IN PLACE.
--- NOTE | 2018-05-13 23:25 | NUR ---
THIS RN CALLED DR NOVA REGARDING PT'S INFILTRATED IV SITE. TELEPHONE ORDER READ BACK THAT IT'S OKAY TO LEAVE PT WITHOUT IV ACCESS. GATE WATCH IN ROOM TO DISCONTINUE PT'S IV. NO ADDITIONAL ORDERS FROM DR NOVA.
--- NOTE | 2018-05-14 02:20 | NUR ---
PT RESTING IN BED, RR EVEN AND UNLABORED. PT ON RA, O2 SAT 94%, HR 84. PT APPEARS COMFORTABLE, NO SIGNS OF RESPIRATORY DISTRESS. CALL LIGHT IN REACH.
--- NOTE | 2018-05-14 05:30 | NUR ---
ASSESSMENT COMPLETE, NO NEW CONCERNS. PT A/OX4, PAIN WELL CONTROLLED WITH PRN PAIN MEDICATIONS. CARYN DRESSING INTACT, NO NEW SHADOWING/DRAINAGE. GREEN OKAY LIGHT FLASHING, QPUMP SET TO 8MLS/HR. BILATERAL SCD'S AND BERNADETTE HOSE IN PLACE. RUPINDER WRAP TO LEFT KNEE CDI. PT DENIES ADDITIONAL NEEDS, CALL LIGHT IN REACH.
--- NOTE | 2018-05-14 06:35 | NUR ---
pt had a good night. vss, pt on ra. a/ox4, pain well controlled with prn pain medications. marika dressing in place, green okay light flashing, qpump set to 8mls/hr. no new shadowing on marika dressing, rohit wrap in place. pt 1-2pa w/ ambulation. ada diet, bs wnl this shift. pt voiding qs, no bm this shift. pt denied nausea this shift. bilateral scd's and will hose in place. no iv access, aware. pt uses call light approperiately.
--- NOTE | 2018-05-14 07:10 | NUR ---
PT RESTING IN SEMI FOWLERS POSITION IN BED, ALERT AND ORIENTED WATCHING TV. BEDSIDE REPORT RECEIVED FROM BRANDON PETERSON. CARYN DSG APPEARS TO BE SATURATED 100%. CARYN PUMP DOES NOT FLASH GREEN AND WHEN BATTERIES REPLACED STILL NO GREEN FLASH. DR NOVA NOTIFIED AND VERBAL ORDER RECEIVED TO CHANGE CARYN DRESSING AND PUMP. CRYO CUFF IN PLACE TO LEFT KNEE. DISTALL CMS INTACT TO LLE. CALL LIGHT AND H20 IN REACH. PT STATES SHE IS COMFORTABLE AND DENIES NEEDS/CONCERNS.
[2018-05-14] MEDS ORDERED: GABAPENTIN300 MG PO (07:53)
[2018-05-14] MEDS ORDERED: OXYCODONE HCL5 MG PO (07:53)
[2018-05-14] MEDS ORDERED: TYLENOL EXTRA500 MG PO (07:53)
--- NOTE | 2018-05-14 08:45 | NUR ---
PT RESTING IN SEMI FOWLERS POSITION, DENIES PAIN, ASSESSMENT COMPLETED. DSG SATURATED AND PUMP NOT FLASHING GREEN. DSG CHANGED WITH NEW CARYN DSG AND PUMP, ERROR MESSAGE FLASHING, DSG FURHTER REENFORCED WITH OPSITE AND APPEARS TO HAVE A GOOD SEAL, ERROR LIGHT PERSISTS. NATALIA, SANFORIZING MACHINE OPERATOR NOTIFIED AND AGREES TO REDRESS WITH NEW CARYN AND PUMP. CALL LIGHT AND H20 IN REACH AND NO NEEDS/CONCERNS VOICED.
[2018-05-14] MEDS ORDERED: DULCOLAX10 MG PR (09:49)
[2018-05-14] MEDS ORDERED: MILK OF MA400 MG/5 M PO (09:49)
[2018-05-14] MEDS ORDERED: FLEET ENEMA133 ML PR (09:50)
[2018-05-14] MEDS ORDERED: MIRALAX17 GM PO (09:53)
[2018-05-14] MEDS ORDERED: METFORMIN HCL500 MG PO (09:54)
[2018-05-14] MEDS ORDERED: DEXTROSE 50%-WA50 M1 IV (09:56)
[2018-05-14] MEDS ORDERED: GLUCAGON EMERGEN1 MG INJ (09:57)
--- NOTE | 2018-05-14 10:18 | NUR ---
CARYN DRESSING CHANGED AND NOT SEALING PROPERLY. DRESSING REMOVED, SURGICAL TAPE TO INCISION BEGINNING TO PEEL OFF, DR. NOVA CALLED, ORDER TO REINFORCE TAPE WITH ADDITIONAL MEDICAL SUPERGLUE AND TO ENSURE THE MEPILEX PORTION OF THE DRESSING IS NOT TOUCHING THE SURGICAL TAPE. DRESSING CHANGED, SEAL AND SUCTION ACHIEVED, LEG WRAPPED WITH RUPINDER. BERNADETTE HOSE, CRYOCUFF AND SCDS IN PLACE. PT DENIES OTHER NEEDS AT THIS TIME.
--- NOTE | 2018-05-14 12:00 | NUR ---
PATIENT CALLS TO HAVE A BEDBATH. BEDBATH DONE. PATIENT DRESS. PATIENT WALKS TO USE BATHROOM USING A WALKER. ONE PERSON ASSISTING. PATIENT BACKS TO CHAIR. CALL LIGHT WITHIN REACH. NO OTHER NEEDS AT THIS TIME
--- NOTE | 2018-05-14 14:53 | NUR ---
PT RESTING IN BED READING, SITTING ON COUCH. PREPPING FOR DC TO MEM ON SWING BED.
--- NOTE | 2018-05-15 07:13 | DS ---
[facility] [address] [place], [place] [address] Signed ADMISSION DATE: 05/11/2018 DISCHARGE DATE: 05/14/2018 ADMISSION DIAGNOSIS: Degenerative joint disease, left knee. DISCHARGE DIAGNOSIS: Degenerative joint disease, left knee. PROCEDURE PERFORMED: Left total knee arthroplasty. BRIEF HISTORY: Yolanda is a 77-year-old lady, who has severe ostearthritis in both knees. She had undergone successful right total knee, although she developed postoperative infection. The left knee was optimized and she wished to proceed with surgery even given the complications and risks. Once consent was obtained, she was taken to the operating room. After adequate anesthesia, she underwent the above-named procedure. She tolerated this well, was taken to the recovery room, and subsequently to the orthopedic floor. She was initially placed on oral pain medication of oxycodone and gabapentin with excellent control of her pain. She developed quite a bit of drainage from her wound and the CARYN wound dressing was changed and the flexion was stopped. The drainage pretty much stopped by the day of discharge. Physical therapy when okay, however she is still not good for gait balance and walking to go home. She wishes to be discharged to swing bed status in [place]. There she can continue with her inpatient rehab until she gets strong or better balance. She will be continued on her current pain medication and her regular medications. She will follow up with me in 10 to 14 days. Candi Grove MD BA/LUIS MANUEL /[id number] Copies: Electronically Signed By: CANDI GROVE MD 05/15/18 0713 PATIENT NAME: YOLANDA FRANCIS DISCHARGE SUMMARY DATE OF : 42 REPORT #: [id number] PHYSICIAN: CANDI GROVE MD PCP: YE ANTON MD REPORT IS CONFIDENTIAL AND NOT TO BE RELEASED WITHOUT AUTHORIZATION [address] [place], [place] [address] Signed ~ Electronically Signed By: CANDI GROVE MD 05/15/18712 PATIENT NAME: YOLANDA FRANCIS DISCHARGE SUMMARY DATE OF : 42 REPORT #: [id number] PHYSICIAN: CANDI GROVE MD PCP: YE ANTON MD REPORT IS CONFIDENTIAL AND NOT TO BE RELEASED WITHOUT AUTHORIZATION
== END 2018-05-14 13:00 | disposition swing bed (61) | DRG 470 ==
LOC: MS 12-22 08:45 → DSVR 05-11 08:05 → MS 05-11 08:45
PROVIDERS: ADMIT Specialist
PROC: 8E0YXBZ Computer Assisted Procedure of Lower Extremity (ICD-10-PCS; 2018-05-11)
PROC: 3E0T3BZ Introduction of Anesthetic Agent into Peripheral Nerves and Plexi, Percutaneous Approach (ICD-10-PCS; 2018-05-11)
PROC: 3E0T33Z Introduction of Anti-inflammatory into Peripheral Nerves and Plexi, Percutaneous Approach (ICD-10-PCS; 2018-05-11)
PROC: 0SRD0J9 Replacement of Left Knee Joint with Synthetic Substitute, Cemented, Open Approach (ICD-10-PCS; principal; 2018-05-11 11:45)
DX: M17.12 Unilateral primary osteoarthritis, left knee (principal); I48.1 Persistent atrial fibrillation; Z68.42 Body mass index [BMI] 45.0-49.9, adult; G89.18 Other acute postprocedural pain; E11.9 Type 2 diabetes mellitus without complications; I10 Essential (primary) hypertension; M79.7 Fibromyalgia; K21.9 Gastro-esophageal reflux disease without esophagitis; G89.4 Chronic pain syndrome; E66.01 Morbid (severe) obesity due to excess calories; Z96.651 Presence of right artificial knee joint; Z79.84 Long term (current) use of oral hypoglycemic drugs; Z79.1 Long term (current) use of non-steroidal anti-inflammatories (NSAID); Z79.02 Long term (current) use of antithrombotics/antiplatelets; Z79.82 Long term (current) use of aspirin; Z79.899 Other long term (current) drug therapy; Z88.1 Allergy status to other antibiotic agents; Z88.0 Allergy status to penicillin; Z88.8 Allergy status to other drugs, medicaments and biological substances; Z79.891 Long term (current) use of opiate analgesic
CPT/HCPCS: 01402; 36415; 64447; 64450; 76942; 80048; 85025; 94762; 97110; 97116; 97161; C1713; C1776; J0131; J0690; J1100; J1815; J1885; J2250; J2405; J2550; J2704; J2795; J7120